=== PATIENT | female | born 1945 | race Caucasian/White ===

== ENCOUNTER 2017-05-10 09:03 | Emergency (ER) | payer MEDICARE, BC ==
[2017-05-10 09:21] VITALS: BP 111/53
--- NOTE | 2017-05-10 09:30 | UC ---
Respiratory Complaint HPI - HPI Summary HPI Summary: chest congestion / cough x 2 days no nasal congestion , no sore throat, no fever or chills, + chest tightness and shortness of breath no chest pain , no palpitation - History of Current Complaint Chief Complaint: UCRespiratory Stated Complaint: UPPER RESP Time Seen by Provider: 05/10/17 09:22 Hx Obtained From: Patient Onset/Duration: Gradual Onset, Lasting Days - 2, Still Present Severity Initially: Moderate Severity Currently: Moderate Character: Cough: Nonproductive Aggravating Factors: Exertion, Deep Breaths Alleviating Factors: Bronchodilator Associated Signs And Symptoms: Positive: Wheezing, URI, Nasal Congestion. Negative: Dyspnea, Fever, Chills, Pleuritic Chest Pain, Hemoptysis, Dizziness, Calf Pain, Calf Swelling, Hoarseness, Sinus Discomfort - Allergies/Home Medications Allergies/Adverse Reactions: Allergies Allergy/AdvReac Type Severity Reaction Status Date / Time Adhesive Tape Allergy Itching Verified 05/10/17 09:09 Sulfa Antibiotics AdvReac GI Upset Verified 05/10/17 09:09 Home Medications: Home Medications Spironolactone TAB* [Aldactone TAB*] 100 mg PO DAILY 05/10/17 [History Confirmed 05/10/17] Vitamin E 1,000 unit PO DAILY 05/10/17 [History Confirmed 05/10/17] PMH/Surg Hx/FS Hx/Imm Hx Previously Healthy: Yes GI/ History: Gastroesophageal Reflux - Surgical History Surgical History: Yes Surgery Procedure, Year, and Place: Hysterectomy-1980, Oopharectomy 1993, T&A, gastric bypass. L TKA. rotator cuff repair - Family History Known Family History: Positive: Hypertension - Social History Alcohol Use: Rare Substance Use Type: None Smoking Status (MU): Former Smoker Length of Time of Smoking/Using Tobacco: 1981 Review of Systems Constitutional: Negative Skin: Negative Eyes: Negative ENT: Negative Respiratory: Cough Cardiovascular: Negative Gastrointestinal: Negative All Other Systems Reviewed And Are Negative: Yes Physical Exam Triage Information Reviewed: Yes Appearance: Well-Appearing, No Pain Distress, Well-Nourished Vital Signs: Initial Vital Signs Temp 97.7 F 05/10/17 09:17 Pulse 61 05/10/17 09:17 Resp 20 05/10/17 09:17 BP 111/53 05/10/17 09:17 Pulse Ox 99 05/10/17 09:17 Eye Exam: Normal Eyes: Positive: Conjunctiva Clear ENT: Positive: Normal ENT inspection, Hearing grossly normal, Pharynx normal, TMs normal. Negative: Nasal congestion, Nasal drainage Neck exam: Normal Neck: Positive: Supple, Nontender, No Lymphadenopathy Respiratory: Positive: Chest non-tender, Lungs clear, Normal breath sounds Cardiovascular: Positive: RRR, No Murmur, Pulses Normal Skin Exam: Normal UC Diagnostic Evaluation - Laboratory O2 Sat by Pulse Oximetry: 99 Respiratory Course/Dx - Differential Dx/Diagnosis Provider Diagnoses: viral bronchitis Discharge - Discharge Plan Condition: Stable Disposition: HOME Prescriptions: Albuterol HFA INHALER* [Ventolin HFA Inhaler*] 1 puff INH Q4H PRN #1 mdi PRN Reason: Wheezing Benzonatate CAP* [Tessalon 100 MG CAP*] 100 mg PO TID PRN #21 cap PRN Reason: Cough Patient Education Materials: Acute Bronchitis (ED) Referrals: Joyce Alatorre MD [Primary Care Provider] - 7 Days
== END 2017-05-10 09:42 | disposition home or self-care (01) ==
LOC: UCCORT 09:03
DX: J20.8 Acute bronchitis due to other specified organisms (principal); Z87.891 Personal history of nicotine dependence; K21.9 Gastro-esophageal reflux disease without esophagitis
CPT/HCPCS: 99212; G0463

== ENCOUNTER 2017-09-01 09:20 | Emergency (ER) | payer MEDICARE, BC ==
[2017-09-01 09:28] VITALS: BP 110/52
--- NOTE | 2017-09-01 10:13 | UC ---
Skin Complaint HPI - HPI Summary HPI Summary: PET HOUSECAT DIAGNOSED WITH RINGWORM SEVERAL WEEKS AGO. HAS RED ITCHY RASH (3 SPOTS) DEVELOPING ON LEFT NECK AND CHIN. NO FEVER. NO SORE THORAT. NO WEAKNESS. NO CHEST PAIN. NO SOB. - History of Current Complaint Chief Complaint: UCSkin Time Seen by Provider: 09/01/17 09:51 Stated Complaint: SKIN COMPLAINT Hx Obtained From: Patient Hx Last Menstrual Period: n/a Onset/Duration: Gradual Onset, Lasting Days, Still Present Skin Exposure Onset/Duration: Days Ago Onset Severity: Mild Current Severity: Mild Location: Discrete - LEFT NECK CHIN Character: Pruritus, Redness Aggravating Factor(s): Clothing Alleviating Factor(s): Nothing, OTC Creams/Salves - HAS TRIED ANTIBACTERIAL OINTMENT WITH NO EFFECT Associated Signs & Symptoms: Positive: Rash. Negative: Nausea, Vomiting, Fever , Chills, Cough, Bruising, Tenderness, Red Streaks Related History: Possible Reaction to: Animal, Possible Reaction to: Environmental Exposure - Allergy/Home Medications Allergies/Adverse Reactions: Allergies Allergy/AdvReac Type Severity Reaction Status Date / Time Adhesive Tape Allergy Itching Verified 09/01/17 09:28 Sulfa Antibiotics AdvReac GI Upset Verified 09/01/17 09:28 Review of Systems Constitutional: Negative Skin: Rash Eyes: Negative ENT: Negative Respiratory: Negative Cardiovascular: Negative Gastrointestinal: Negative Genitourinary: Negative Motor: Negative Neurovascular: Negative Musculoskeletal: Negative Neurological: Negative Psychological: Negative Is Patient Immunocompromised?: No All Other Systems Reviewed And Are Negative: Yes PMH/Surg Hx/FS Hx/Imm Hx Previously Healthy: Yes - Surgical History Surgical History: Yes Surgery Procedure, Year, and Place: Hysterectomy-1980, Oopharectomy 1993, T&A, gastric bypass. L TKA. rotator cuff repair - Family History Known Family History: Positive: Hypertension - Social History Occupation: Retired Lives: With Family Alcohol Use: Rare Substance Use Type: None Smoking Status (MU): Former Smoker Length of Time of Smoking/Using Tobacco: 1981 - Immunization History Most Recent Influenza Vaccination: 07/2017 Physical Exam Triage Information Reviewed: Yes Appearance: Well-Appearing, No Pain Distress, Well-Nourished Vital Signs: Initial Vital Signs Temp 98.5 F 09/01/17 09:24 Pulse 68 09/01/17 09:24 Resp 16 09/01/17 09:24 BP 110/52 09/01/17 09:24 Pulse Ox 99 09/01/17 09:24 Vital Signs Reviewed: Yes Eye Exam: Normal ENT Exam: Normal ENT: Positive: Normal ENT inspection, Hearing grossly normal, TMs normal Dental Exam: Normal Neck exam: Normal Neck: Positive: Supple, Nontender, No Lymphadenopathy Respiratory Exam: Normal Respiratory: Positive: Chest non-tender, Lungs clear, Normal breath sounds, No respiratory distress, No accessory muscle use Cardiovascular Exam: Normal Cardiovascular: Positive: RRR, No Murmur, Pulses Normal, Brisk Capillary Refill Abdominal Exam: Normal Musculoskeletal Exam: Normal Musculoskeletal: Positive: Strength Intact, ROM Intact Neurological Exam: Normal Psychological Exam: Normal Skin: Positive: rashes Course/Dx - Differential Diagnoses - Skin Complaint Differential Diagnoses: Cellulitis, Drug Rash, Eczema, Impetigo, MRSA, Poison Tiffanie, Scabies, Tinea - Diagnoses Provider Diagnoses: TINEA CORPORIS Discharge - Discharge Plan Condition: Stable Disposition: HOME Prescriptions: Ketoconazole 2 % CREAM (NF) [Nizoral 2% CREAM (NF)] 1 applic TOPICAL TID #1 tube Patient Education Materials: Tinea Corporis (ED) Referrals: Aide Gutierrez MD [Primary Care Provider] -
== END 2017-09-01 10:08 | disposition home or self-care (01) ==
LOC: UCCORT 09:20
DX: B35.4 Tinea corporis (principal); Z88.2 Allergy status to sulfonamides; Z87.891 Personal history of nicotine dependence
CPT/HCPCS: 99212; G0463

== ENCOUNTER 2017-12-13 10:36 | Emergency (ER) | payer MEDICARE, BC ==
[2017-12-13 12:12] VITALS: BP 139/54
--- NOTE | 2017-12-13 13:06 | RAD ---
INDICATION: Low back pain COMPARISON: None TECHNIQUE: Routine 2 view imaging of the thoracolumbar spine was performed FINDINGS: Bones: There is osteopenia. There is an age-indeterminate superior endplate compression deformity of L1. There are mild biconcave changes of multiple lower thoracic vertebrae. There is spurring at the thoracolumbar junction. There is mild multilevel degenerative disc disease IMPRESSION: OSTEOPENIA WITH ENDPLATE CHANGES CONSISTENT WITH AGE-INDETERMINATE INSUFFICIENCY FRACTURES. CONSIDER MR IMAGING OR BONE SCAN IF INDICATED TO DETERMINE CHRONICITY.
--- NOTE | 2017-12-13 13:17 | UC ---
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 Hx Last Menstrual Period: n/a Onset/Duration: Sudden Onset, Lasting Days - 7, Still Present Timing: Constant Severity Initially: Moderate Severity Currently: Moderate Pain Intensity: 0 Back Pain: Is Discrete @ - left mid back Character: Aching Aggravating Factor(s): Movement, Lifting, Bending, Walking, Cough Alleviating Factor(s): Rest Associated Signs And Symptoms: Positive: Bowel Incontinence - Allergies/Home Medications Allergies/Adverse Reactions: Allergies Allergy/AdvReac Type Severity Reaction Status Date / Time Adhesive Tape Allergy Itching Verified 12/13/17 12:12 MS Sulfa Antibiotics AdvReac GI Upset Verified 12/13/17 12:12 [Sulfa Antibiotics] PMH/Surg Hx/FS Hx/Imm Hx Cardiovascular History: Hypertension - Surgical History Surgical History: Yes Surgery Procedure, Year, and Place: Hysterectomy-1980, Oopharectomy 1993, T&A, gastric bypass. L TKA. rotator cuff repair - Family History Known Family History: Positive: Hypertension - Social History Alcohol Use: Rare Substance Use Type: None Smoking Status (MU): Former Smoker Length of Time of Smoking/Using Tobacco: 1981 - Immunization History Most Recent Influenza Vaccination: 07/2017 Review of Systems Constitutional: Negative Skin: Negative Eyes: Negative ENT: Negative Respiratory: Negative Is Patient Immunocompromised?: No All Other Systems Reviewed And Are Negative: Yes Physical Exam Triage Information Reviewed: Yes Appearance: Well-Appearing, No Pain Distress, Well-Nourished Vital Signs: Initial Vital Signs Temp 98.0 F 12/13/17 12:08 Pulse 72 12/13/17 12:08 Resp 16 12/13/17 12:08 BP 139/54 12/13/17 12:08 Pulse Ox 99 12/13/17 12:08 Vital Signs Reviewed: Yes Eyes: Positive: Conjunctiva Clear ENT: Positive: Normal ENT inspection, Hearing grossly normal, Pharynx normal Neck: Positive: Supple, Nontender, No Lymphadenopathy Respiratory: Positive: Chest non-tender, Lungs clear, Normal breath sounds Cardiovascular Exam: Normal Cardiovascular: Positive: RRR, No Murmur Abdominal Exam: Normal Abdomen Description: Positive: Nontender, Soft. Negative: CVA Tenderness (R), CVA Tenderness (L), Distended, Guarding Bowel Sounds: Positive: Present Musculoskeletal: Positive: Other: - mid back : no swelling, no ecchymosis, no tenderness, pain with flexion and extension Skin Exam: Normal Diagnostics - Laboratory Diagnostic Studies Completed/Ordered: xray thoracolumbar: no acute disease Back Pain Course/Dx - Differential Dx/Diagnosis Provider Diagnoses: back strain Discharge - Discharge Plan Condition: Stable Disposition: HOME Patient Education Materials: Back Pain (ED) Forms: *Work Release Referrals: Aide Gutierrez MD [Primary Care Provider] -
== END 2017-12-13 13:16 | disposition home or self-care (01) ==
LOC: UCCORT 10:36
DX: S29.012A Strain of muscle and tendon of back wall of thorax, initial encounter (principal); Z87.891 Personal history of nicotine dependence; I10 Essential (primary) hypertension; X58.XXXA Exposure to other specified factors, initial encounter; Y92.9 Unspecified place or not applicable
CPT/HCPCS: 72080; 99211; G0463

== ENCOUNTER 2018-08-17 10:58 | Emergency (ER) | payer MEDICARE, BC ==
--- OUTSIDE RECORDS SUMMARY | 2018-08-17 11:13 | XMS REPORT | Continuity of Care Document ---
:1945 External Reference #:[id number] Author Name Gutierrez Lopez MD Address [address] [place] [address] Care Team Providers Name Role Phone Marcie Reno MD. Care Team Information Director Supply Unavailable Daniel Gonzalez MD Primary Care Physician Unavailable Payers Type Date Identification Numbers Payment Provider Subscriber Policy Number: [id number] Medicare Part B Brit Dubois PayID: [id number] [address] [place] [address] Policy Number: [id number] [facility] Brit Dubois PayID: [id number] [address] [address] [place] [address] Advance Directives Description No Information Available Problems Date Description Provider Status Onset: 03/03/2018 Presence of intraocular lens Gutierrez Lopez MD Active Onset: 03/03/2018 Conjunctival pigmentation Gutierrez Lopez MD Active Family History Description No Information Available Social History Type Date Description Comments Sex Unknown Tobacco Use Start: Unknown Patient has never smoked Allergies, Adverse Reactions, Alerts Date Description Reaction Status Severity Comments 03/03/2018 Sulfa Antibiotics Active Medications Medication Date Status Form Strength Qnty SIG Indications Ordering Provider Pramipexole Active Tablets 0.5mg Unknown 000 Enalapril Active Tablets 20mg Unknown Maleate 000 Diltiazem HCL Active Caps ER 120mg Unknown ER 000 12HR Dexilant Active Capsules DR 60mg Unknown 000 Furosemide Active Tablets 20mg Unknown 000 Gabapentin 00/00/0 Active Capsules 300mg Unknown 000 Magnesium Active Chewtabs 200mg Unknown 000 Famciclovir Active Tablets 500mg Unknown 000 Aspirin 81 Low Active Chewtabs 81mg by mouth Unknown Dose 000 every day Immunizations Description No Information Available Vital Signs Date Vital Result Comment 08/11/2018 10:50am Intraocular Pressure Right Eye 12 mmHg Tp 10:51 Am Intraocular Pressure Left Eye 10 mmHg 07/13/2018 7:57am Intraocular Pressure Right Eye 8 mmHg Tp 07:57 Am Intraocular Pressure Left Eye 10 mmHg Tp 07:57 Am 03/03/2018 9:17am Intraocular Pressure Right Eye 6 mmHg tp Intraocular Pressure Left Eye 5 mmHg tp Results Description No Information Available Procedures Description No Information Available Encounters Type Date Location Provider Dx Diagnosis Office Visit 07/13/2018 Main Office Gutierrez Tim 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
--- OUTSIDE RECORDS SUMMARY | 2018-08-17 11:13 | XMS REPORT ---
:1945 External Reference #:[id number] Author Organization [facility] Address [address] [place] [address] Phone [phone] Care Team Providers Name Role Phone [facility] Care Team Information [employer] Unavailable Problems Description No Information Family History Date Family Member(s) Problem(s) Comments Mother due to ID () - age 67 First Brother due to Lung Cancer () - age 57 Second Brother 73 Third Brother 75 First Sister due to Cancer () - early 30's bone Social History Type Date Description Comments Marital Status Significant 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 Cigarette Use Former Cigarette Smoker quit `1985 ETOH Use Occasional Recreational Drug Use Denies Drug Use Daily Caffeine Consumes on average 1 cup of coffee per day Exercise Type/Frequency active lifestyle Allergies, Adverse Reactions, Alerts Date Description Reaction Status Severity Comments 07/31/2018 Sulfa active Medications Medication Date Status Form Strength Qnty SIG Indications Ordering Provider Pramipexole / Active Tablets 0.5mg tid Unknown Dihydrochloride 0000 Enalapril Maleate / Active Tablets 20mg 1 by Unknown 0000 mouth every day Diltiazem HCL / Active Tablets 120mg 1 PO qd Unknown 0000 Dexilant / Active Capsules 60mg [address] mouth every day Furosemide / Active Tablets 20mg 1 by Unknown 0000 mouth every day Gabapentin / Active Capsules 300mg 1 by Unknown 0000 mouth three times a day Magnesium / Active Chewtabs 200mg Unknown 0000 Vitamin B-12 / Active Liquid 1000mcg/15 Unknown 0000 ML Vitamin E / Active Capsules 100Unit 1 by Unknown 0000 mouth every day Aspir-81 / Active Tablets DR 81mg 1 by Unknown 0000 mouth every day Famciclovir / Active Tablets 500mg as Unknown 0000 Needed Vital Signs Date Vital Result Comment 07/31/2018 BP Systolic 110 mmHg BP Diastolic 68 mmHg Heart Rate 60 /min Body Temperature 98.0 F Respiratory Rate 16 /min Height 65.5 inches 5'5.50" Weight 231.00 lb BMI (Body Mass Index) 37.9 kg/m2 Results Description No Information Procedures Description No Information Plan of Care 07/31/2018 - Supriya Coombs, Brendon-CZ00.8 Encounter for other general examinationComments:nl exam , no contraind to continued employmentAllComments:~B _~U_Medication Management~b_~u_ Patient Understands medications she's taking? Yes No Are there Barriers to Adherence? Yes No Has the patient been asked about herbal supplements and therapies, and OTC meds? Yes No ~B_~U_Care Plan~b_~u_1. Patient has been queried about patient's goals/ preferences and functional/lifestyle goals at relevant visits. If relevant, describe: na2. Treatment goals as explained to the patient: aboveroutine health maintenance and disease prevention 3. Are there barriers to meeting treatment goals? Yes No If Yes, please describe:4. Self-Management goals as described to the patient: Yes No continue regular physical activity and f/u with your pcp rotuinely
--- OUTSIDE RECORDS SUMMARY | 2018-08-17 11:14 | XMS REPORT ---
:1945 External Reference #:[id number] Author Organization [facility] Address [address] [place] [address] Phone [phone] Care Team Providers Name Role Phone Shakira Gonzalez NP Care Team Information Packaging Associate Unavailable Payers Type Date Identification Numbers Payment Provider Subscriber Medicare Primary Policy Number: [id number] Medicare Brit Dubois Group Name: Federal [address] PayID: [id number] [place] [address] [place] Part B Policy Number: [id number] [facility] Commercial Brit Dubois PayID: [id number] [address] [address] [place] [address] Problems Date Description Provider Status Onset: 01/24/2018 Benign essential hypertension Shakira Gonzalez NP Active Family History Date Family Member(s) Problem(s) Comments Father Hypertension Father due to Stroke () Mother Hypertension Mother due to AL () Mother Stroke First Son Depression First Daughter Diabetes, Adult First Daughter Depression First Daughter Hearing Impaired First Daughter Stroke First Brother Diabetes, Adult First Brother due to Kidney Disease () Second Brother Cancer, Lung Second Brother due to Cancer, Lung () Third Brother due to Accident () Fourth Brother Cancer, Prostate Fifth Brother Cancer, Prostate First Sister due to Cancer, Bone () Second Sister Diabetes, Adult Social History Type Date Description Comments Marital Status 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 Occupation [employer] 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 [employer] 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 Cigarette Use Former Cigarette Smoker Cigarette Use Former Cigarette Smoker 3 Packs Daily Cigarette Use Pack Years - 105 ETOH Use Occasionally consumes alcohol Smoking Patient is a former smoker Recreational Drug Use Denies Drug Use Enjoy Exercising Enjoys Exercising Sun Exposure Does not use sunscreen Seat Belt/Car Seat always uses seat belt Allergies, Adverse Reactions, Alerts Date Description Reaction Status Severity Comments 01/24/2018 Sulfa Antibiotics active Medications Medication Date Status Form Strength Qnty SIG Indications Ordering Provider Prednisone 07/21 Active Tablets 20mg 15tab 3 by mouth s every day x Shakira, 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 Nystatin 07/21 Active Powder [id number] 60gm apply 2 t/GM times a day Shakira, in affected TAILING MACHINE OPERATOR area until it heals, then once a day Shingrix 04/28 Active Suspension 50mcg 1unit as directed Rec s REY Rosenberg Estradiol 04/28 Active Cream 0.1mg/GM 42.5u apply pea nits sized Shakira, amount to TAILING MACHINE OPERATOR vaginal opening daily Magnesium 02/15 Active Tablets 400mg two in in the morning Shakira, and two in TAILING MACHINE OPERATOR the at night Ferrous Sulfate 02/02 Active Tablets 324(65Fe) 90tab 1 by mouth mg s every day REY Rosenberg Metronidazole 01/26 Active Gel 0.75% 70gm 1 applicator Shakira, full at TAILING MACHINE OPERATOR bedtime x 5 days Pramipexole 01/24 Active Tablets 0.5mg 90tab three times , Dihydrochloride s a day REY Rosenberg Enalapril 01/24 Active Tablets 20mg 90tab 1 every day , Maleate s REY Rosenberg Diltiazem CD 01/24 Active Caps ER 120mg 90cap 1 in the 24HR s morning REY Rosenberg Dexilant 01/[address] 60mg 30cap 1 at s bedtime REY Rosenberg Furosemide 01/24 Active Tablets 20mg 90tab 1 by mouth s every day REY Rosenberg Gabapentin 01/24 Active Capsules 300mg 270ca 1 three ps times a day REY Rosenberg Cyanocobalamin 01/24 Active Solution 1000mcg/M 3ml 1 L milliliters Shakira, intramuscul TAILING MACHINE OPERATOR ar every week x4 wks and then 1 milliliters intramuscul ar each month B-D Insulin 01/24 Active Misc 31G X 100un as directed Lisa Syringe 03/29" 1 its Shakira, Ultrafine ML TAILING MACHINE OPERATOR II/1ML/31G X 03/29" Famciclovir 01/24 Active Tablets 500mg 120ta as needed bs REY Rosenberg Aspirin 81 Low 01/24 Active Chewtabs 81mg 90uni 1 by mouth Temo Dose ts every day REY Rosenberg Vitamin E 01/24 Active Capsules 200Unit 120ca as directed ps REY Rosenberg T.E.D. 01/24 Active Misc 2Pair please Lisa Anti-Embolism measure for Shakira Stockings Thigh size TAILING MACHINE OPERATOR High Nitrofurantoin 01/26 Hx Capsules 100mg 14cap 1 by mouth Temo Macrocrystal s twice a day Cole Rosenberg NP 02/15 Magnesium 01/24 Hx Chewtabs 200mg 90uni as directed ts Cole Rosenberg NP 02/15 Immunizations CPT Code Status Date Vaccine Lot # [id number] Given 04/28/2018 Tdap (Adacel) Ages 7 And Above Only [id number] Given 04/28/2018 Prevnar 13 Pneumococal Conjugate Vaccine [id number] Vital Signs Date Vital Result Comment 07/21/2018 BP Systolic 120 mmHg BP Diastolic 70 mmHg 04/28/2018 Body Temperature 97.6 F Mmse=30/30 Weight 232.00 lb Heart Rate 76 /min BP Systolic 122 mmHg BP Diastolic 62 mmHg Height 66 inches 5'6" O2 % BldC Oximetry 97 % BMI (Body Mass Index) 37.4 kg/m2 Urine Dipstick - Blood NEGATIVE Urine Dipstick - Protein NEGATIVE Urine Dipstick - Glucose NEGATIVE Urine Dipstick - Leukocytes NEGATIVE 02/15/2018 Weight 245.00 lb BP Systolic 150 mmHg BP Diastolic 64 mmHg Height 66 inches 5'6" BMI (Body Mass Index) 39.5 kg/m2 Urine Dipstick - Blood NEGATIVE Urine Dipstick - Protein NEGATIVE Urine Dipstick - Glucose NEGATIVE Urine Dipstick - Leukocytes 2+ 01/24/2018 Body Temperature 98.2 F Weight 240.00 lb BP Systolic 120 mmHg BP Diastolic 70 mmHg Height 66 inches 5'6" BMI (Body Mass Index) 38.7 kg/m2 Urine Dipstick - Blood NEGATIVE Urine Dipstick - Protein NEGATIVE Urine Dipstick - Glucose NEGATIVE Urine Dipstick - Leukocytes 2+ Results Test Date Test Result H/L Range Note Iron Panel 05/02/2018 Iron, Total 28 g/dL Low 50-170 Transferrin 280.0 mg/dL 203.0-362.0 Tibc (calc) 392 g/dL 261-478 % Iron Saturation 7.1 % Low 13.0-45.0 CBC with Auto Diff-fcmg 05/02/2018 WBC 7.0 K/uL 4.1-11.0 RBC 4.60 M/uL 4.00-5.40 Hemoglobin 12.2 gm/dL 12.0-16.0 Hematocrit 38.3 % 36.0-47.0 MCV 83.2 fL 80.0-97.0 MCH 26.6 pg Low 27.0-32.0 MCHC 32.0 g/dL 32.0-36.0 RDW 17.0 % High 11.5-14.5 PLT Count 265 K/ul 140-400 MPV 8.3 FL 7.1-10.7 Neutrophil 59.4 % 35.0-75.0 Lymphocyte 28.3 % 16.0-52.0 Monocyte 8.1 % 2.0-10.0 Eosinophil 3.1 % 0.0-5.0 Basophil 1.1 % 0.0-4.0 Abs Neutrophils 4.1 K/uL 2.1-8.0 Abs Lymphocytes 2.0 K/uL 0.8-5.5 Abs Monocytes 0.6 K/uL 0.1-1.0 Abs Eosinophils 0.2 K/uL 0.0-0.5 Abs Basophils 0.1 K/uL 0.0-0.3 Laboratory test 04/28/2018 Hepatitis C Virus NON REACTIVE Non Reactive 1 finding Antibody S/[facility] Iron Panel 04/28/2018 Iron, Total 54 g/dL 50-170 Transferrin 297.0 mg/dL 203.0-362.0 Tibc (calc) 416 g/dL 261-478 % Iron Saturation 13.0 % 13.0-45.0 Comprehensive Met Panel-[facility] 04/28/2018 Sodium 144 mmol/L 135-146 2 Potassium 3.7 mmol/L 3.5-5.2 Chloride# 106 mmol/L 97-110 3 Carbon Dioxide 28 mmol/L 24-34 Glucose 82 mg/dL 70-105 BUN 11 mg/dL 6-26 Creatinine 0.8 mg/dL 0.5-1.4 Calcium 8.7 mg/dL 8.5-10.2 Total Protein 5.6 g/dL Low 6.0-8.0 Albumin 3.6 g/dL 3.6-4.9 Globulin 2.0 g/dL 2.0-3.5 A/G Ratio 1.8 Ratio 1.0-2.2 Total Bilirubin 0.4 mg/dL 0.1-1.3 Alkaline Phosphatase 99 U/L 24-140 Alt 10 U/L 3-42 Ast 17 U/L 8-42 Amy Egfr >60 >60 4 Non Amy Egfr >60 >60 5 Anion Gap 10 mmol/L 5-15 6 Lipid 04/28/2018 Cholesterol 137 mg/dL 50-199 Triglycerides 75 mg/dL 30-200 HDL 43 mg/dL 35-85 7 Chol/ HDL Ratio 3.2 ratio Low 3.7-5.6 VLDL 15 mg/dL 2-29 LDL (Calc) 79 mg/dL 20-99 8 Arthritis Panel-[facility] 02/15/2018 Rheumatoid Factor <10.0 IU/mL 0.0-10.0 Esr 11 mm/h (0-30) 9 CRP-High 2.42 mg/L 0.00-9.90 10 Uric Acid 4.6 mg/dL 2.6-7.6 Aletha Screen With Reflex-[facility] 02/15/2018 Aletha Screen NEGATIVE Negative dsDNA IgG 3.70 Negative 11 Lyme Igm/Igg AB 02/15/2018 Lyme Igm/Igg AB NEGATIVE (Neg) 12, 13 -RL @ Laboratory test 02/15/2018 Urine Culture Microbiology res 14 finding <SEE NOTE> Laboratory test 02/03/2018 Fit(Fecal Occult Negative Negative finding Blood) Order 01/30/2018 Urinalysis Done Negative [facility] test 01/30/2018 Hematocrit 35.9 % Low (36.0-47.0) 15 finding RBC 4.17 10*6/uL (4.00-5.40) 16 Retic Count -RL 01/30/2018 Retic % 1.0 % (0.6-2.1) Retic Index 0.9 % (0.5-1.9) Absolute Retic 0.04 10*6/uL (0.027-0.101) 17 Laboratory test finding 01/30/2018 Calcium 8.6 mg/dL 8.5-10.2 Iron Panel 01/30/2018 Iron, Total 28 g/dL Low 50-170 Transferrin 358.0 mg/dL 203.0-362.0 Tibc (calc) 501 g/dL High 261-478 % Iron Saturation 5.6 % Low 13.0-45.0 Laboratory test finding 01/30/2018 Vitamin B12 268 pg/mL 180-914 Folate 21.5 ng/ml 5.9-24.8 Ferritin 8.4 ng/ml Low 11.0-306.0 CBC With Auto Diff 01/30/2018 WBC 7.9 K/uL 4.1-11.0 RBC 4.09 M/uL 4.00-5.40 Hemoglobin 11.3 gm/dL Low 12.0-16.0 Hematocrit 34.6 % Low 36.0-47.0 MCV 84.6 fL 80.0-97.0 MCH 27.7 pg 27.0-32.0 MCHC 32.7 g/dL 32.0-36.0 RDW 13.4 % 11.5-14.5 PLT Count 302 K/ul 140-400 MPV 8.2 FL 7.1-10.7 Neutrophil 58.4 % 35.0-75.0 Lymphocyte 27.7 % 16.0-52.0 Monocyte 9.1 % 2.0-10.0 Eosinophil 4.0 % 0.0-5.0 Basophil 0.8 % 0.0-4.0 Abs Neutrophils 4.6 K/uL 2.1-8.0 Abs Lymphocytes 2.2 K/uL 0.8-5.5 Abs Monocytes 0.7 K/uL 0.1-1.0 Abs Eosinophils 0.3 K/uL 0.0-0.5 Abs Basophils 0.1 K/uL 0.0-0.3 Affirm 01/24/2018 Trichomonas Vaginalis Negative Negative Gardnerella Vaginalis Positive Negative Jennifer Species Negative Negative CBC With Auto Diff 01/24/2018 WBC 7.6 K/uL 4.1-11.0 18 RBC 4.16 M/uL 4.00-5.40 18 Hemoglobin 11.4 gm/dL Low 12.0-16.0 18 Hematocrit 35.7 % Low 36.0-47.0 18 MCV 85.8 fL 80.0-97.0 18 MCH 27.4 pg 27.0-32.0 18 MCHC 32.0 g/dL 32.0-36.0 18 RDW 13.4 % 11.5-14.5 18 PLT Count 298 K/ul 140-400 18 MPV 7.6 FL 7.1-10.7 18 Neutrophil 59.9 % 35.0-75.0 18 Lymphocyte 26.2 % 16.0-52.0 18 Monocyte 9.4 % 2.0-10.0 18 Eosinophil 3.6 % 0.0-5.0 18 Basophil 0.9 % 0.0-4.0 18 Abs Neutrophils 4.5 K/uL 2.1-8.0 18 Abs Lymphocytes 2.0 K/uL 0.8-5.5 18 Abs Monocytes 0.7 K/uL 0.1-1.0 18 Abs Eosinophils 0.3 K/uL 0.0-0.5 18 Abs Basophils 0.1 K/uL 0.0-0.3 18 Laboratory test finding 01/24/2018 TSH 0.56 uIU/mL 0.35-4.94 18 Hemoglobin A1c 01/24/2018 Hemoglobin A1c 5.4 % 4.1-5.9 18 Estimated Average Glucose Calc 108 mg/dL 71-140 18 Basic (BMP) 01/24/2018 Sodium 143 mmol/L 135-146 18, 19 Potassium 4.2 mmol/L 3.5-5.2 18 Chloride# 106 mmol/L 97-110 18, 20 Carbon Dioxide 30 mmol/L 24-34 18 Glucose 80 mg/dL 70-105 18 BUN 18 mg/dL 6-26 18 Creatinine 0.8 mg/dL 0.5-1.4 18 Calcium 8.3 mg/dL Low 8.5-10.2 18 Non Amy Egfr >60 >60 18, 21 Amy Egfr >60 >60 18, 22 Anion Gap 7 mmol/L 5-15 18, 23 Laboratory test finding 01/24/2018 Urine Culture Microbiology res <SEE NOTE > 24 1 S/CO Ratio >/=1.0 is REACTIVE. S/CO <5.0 is Low Reactive. S/CO >/= 5.0 is High Reactive. Effective Jul 08, 2017 all anti-HCV reactive samples are sent for quantitative PCR confirmation. 2 Updated reference range on new analyzer 3 Updated reference range on new analyzer 4 Concerning GFR Guidelines for Americans: Normal function or mild renal disease, if clinically at risk: >/=60 mL/min Moderately decreased: 30-59 Severely decreased: 15-29 Renal failure: <15 5 Concerning GFR Guidelines: Normal function or mild renal disease, if clinically at risk: >/=60 mL/min Moderately decreased: 30-59 Severely decreased: 15-29 Renal failure: <15 Glomerular Filtration Rate (GFR) is estimated based on the MDRD equation, which assumes a steady state for creatinine as recommended by the National Kidney Disease Education Program in conjunction with the National Institutes of Health and the National Kidney Foundation. Clinical conditions in which it may be necessary to measure GFR by using clearance methods include extremes of age and body size, severe malnutrition or obesity, diseases of skeletal muscle, paraplegia or quadriplegia, vegetarian diet, rapidly changing kidney function, and calculation of the dose of potentially toxic drugs that are excreted by the kidneys. 6 Updated Reference Range 7 Per NCEP ATP III Guidelines: Results lower than 40 mg/dL are suggestive of increased risk for coronary artery disease. Results > or=to 60 mg/dL are considered a negative risk factor. 8 Per NCEP ATP III Guidelines: Normal Population <130 Patients with medical conditions: CHD/DM Optimal: <100 Borderline high: 130-159 High: 160-189 Very high: >189 9 Unless otherwise specified, testing [place] [address] 10 Recommended Cardiac Risk Assessment: Low < 1.0 mg/L Average 1.0 - 3.0 mg/L High > 3.0 mg/L 11 Interpretation: <0.8 -9 IU/ml Negative 10-15 IU/ml Equivocal >15.0 IU/ml Positive 12 Specimen received unspun 13 A Negative serologic test for Lyme Disease indicates no serologic evidence of infection with B burgdorferi at the time this specimen was collected. A repeat specimen should be collected in 2 to 4 weeks if clinically indicated. Unless otherwise specified, testing [place] [address] 14 Microbiology results SOURCE Clean Catch Midstream FINAL RESULT 50,000 CFU/ML Mixed urogenital kaye consistent with contamination. Request fresh specimen if indicated. 15 Unless otherwise specified, testing performed by [facility] [address] [place] [address] 16 Unless otherwise specified, testing performed by [facility] [place] [address] [place] [address] 17 Unless otherwise specified, testing performed by [facility] [address] [place] [id number] 18 Specimen received unspun 2 SST 19 Updated reference range on new analyzer 20 Updated reference range on new analyzer 21 Concerning GFR Guidelines: Normal function or mild renal disease, if clinically at risk: >/=60 mL/min Moderately decreased: 30-59 Severely decreased: 15-29 Renal failure: <15 Glomerular Filtration Rate (GFR) is estimated based on the MDRD equation, which assumes a steady state for creatinine as recommended by the National Kidney Disease Education Program in conjunction with the National Institutes of Health and the National Kidney Foundation. Clinical conditions in which it may be necessary to measure GFR by using clearance methods include extremes of age and body size, severe malnutrition or obesity, diseases of skeletal muscle, paraplegia or quadriplegia, vegetarian diet, rapidly changing kidney function, and calculation of the dose of potentially toxic drugs that are excreted by the kidneys. 22 Concerning GFR Guidelines for Americans: Normal function or mild renal disease, if clinically at risk: >/=60 mL/min Moderately decreased: 30-59 Severely decreased: 15-29 Renal failure: <15 23 Updated Reference Range 24 Microbiology results SOURCE Clean Catch Midstream COLONY COUNT >100,000 CFU/ML PRELIMINARY RESULT Gram Negative Serafin. ID & Sensitivity to Follow. 01/25/2018 3:43 PM FINAL RESULT Escherichia coli (Isolate 1) Sensitivity Analysis Isolate 1 --------- AMIKACIN <=16 S AMOXICILLIN/CLAVULANATE >16/8 R AMPICILLIN >16 R AMPICILLIN/SULBACTAM >16/8 R CEFEPIME <=8 S CEFOTAXIME <=2 S CEFTRIAXONE <=1 S CEFUROXIME 16 I CIPROFLOXACIN <=1 S ERTAPENEM <=0.5 S GENTAMYCIN <=2 S IMIPENEM <=1 S LEVOFLOXACIN <=2 S NITROFURANTOIN <=32 S PIPERACILLIN/TAZOBACTAM <=16 S TETRACYCLINE <=4 S TOBRAMYCIN <=4 S TRIMETHOPRIM/SULFAMETHOXAZ <=2/38 S S=Sensitive;I=Indeterminate;R=Resistant Procedures Date CPT Code Description Status 01/24/2018 54286 Electrocardiogram Complete Completed 01/13/2018 Mammogram Completed 08/28/2009 Colonoscopy Completed Encounters Type Date Location Provider CPT E/M Dx Office Visit 04/28/2018 10:15a Shakira Leone NP [id number] Z00.00 D50.9 G25.81 I10 Z68.37 Z23 Z11.59 Office Visit 02/15/2018 3:15[place] [address] Z68.39 N30.01 G25.81 M79.606 R60.9 Office Visit 01/24/2018 2:15p [place] [address] R60.9 I10 N76.0 K42.9 R73.01 Plan of Care Future Appointment(s):08/18/2018 10:15 am - Shakira Gonzalez NP at [facility] - Shakira Gonzalez, REYM25.512 Pain in LEFT shoulderNew Xrays:Shoulder, Complete, Min. Of 2 V LTKnee, 1 0R 2 Views, LTM25.562 Pain in LEFT kneeS50.851A Superficial foreign body of RIGHT forearm, initial encounterAllNew Medication: Prednisone 20 mgNystatin [id number] Unit/GM
[2018-08-17 11:36] VITALS: BP 137/49
--- NOTE | 2018-08-17 14:11 | UC ---
Skin Complaint HPI - HPI Summary HPI Summary: Pt presents with c/o bilateral lower extremity skin redness and painful "itchy skin" . Pt has chronic lower extremity edema and reports that lower extremities are "less swollen than usual". Pt also has c/o of right buttock and hip pain that began after falling onto right knee ~ 3 days ago. Pt reports that pain radiates from right buttock to posterior upper thigh. - History of Current Complaint Chief Complaint: UCLowerExtremity Time Seen by Provider: 08/17/18 12:11 Stated Complaint: BILATERAL SKIN/RIGHT LEG COMPLAINT Hx Obtained From: Patient Hx Last Menstrual Period: n/a ?: No Onset/Duration: Gradual Onset, Lasting Days, Still Present Skin Exposure Onset/Duration: Days Ago Timing: Constant Onset Severity: Mild Current Severity: Moderate Pain Intensity: 8 Pain Scale Used: 0-10 Numeric Character: Pruritus, Redness, Painful Aggravating Factor(s): Touch Alleviating Factor(s): Nothing Associated Signs & Symptoms: Positive: Tenderness - Allergy/Home Medications Allergies/Adverse Reactions: Allergies Allergy/AdvReac Type Severity Reaction Status Date / Time Adhesive Tape Allergy Itching Verified 08/17/18 11:31 Sulfa (Sulfonamide AdvReac GI Upset Verified 08/17/18 11:31 Antibiotics) Home Medications: Home Medications Aspirin 81 mg CHEW TAB* 81 mg PO QAM 08/17/18 [History Confirmed 08/17/18] Cyanocobalamin INJ * [Vitamin B12 INJ *] 1,000 mcg IM Q14D 08/17/18 [History Confirmed 08/17/18] Dexlansoprazole (NF) [Dexilant (NF)] 60 mg PO QPM 08/17/18 [History Confirmed ] Diltiazem TAB* [Cardizem 60 MG Tab*] 120 mg PO QAM 08/17/18 [History Confirmed 08/17/18] Enalapril TAB* [Vasotec TAB*] 20 mg PO QAM 08/17/18 [History Confirmed 08/17/18] Famciclovir(NF) [Famvir(NF)] 500 mg PO SEE INSTRUCTIONS PRN 08/17/18 [History Confirmed 08/17/18] Furosemide TAB* [Lasix TAB*] 20 mg PO QAM 08/17/18 [History Confirmed 08/17/18] Gabapentin CAP(*) [Neurontin 300 CAP(*)] 300 mg PO TID 08/17/18 [History Confirmed 08/17/18] Lidocaine PATCH 5%* [Lidoderm 5% Patch*] 1 patch TRANSDERM DAILY PRN 08/17/18 [ History Confirmed 08/17/18] Magnesium Oxide TAB* [MagOx 400 TAB*] 200 mg PO QAM 08/17/18 [History Confirmed 08/17/18] Pramipexole TAB* [Mirapex TAB*] 0.5 mg PO TID 08/17/18 [History Confirmed ] Vitamin E CAP* 400 unit PO QAM 08/17/18 [History Confirmed 08/17/18] Review of Systems Constitutional: Negative Skin: Other - erythema, Eyes: Negative ENT: Negative Respiratory: Negative Cardiovascular: Negative Gastrointestinal: Negative Genitourinary: Negative Motor: Negative Neurovascular: Negative Musculoskeletal: Arthralgia, Myalgia Neurological: Negative Psychological: Negative Is Patient Immunocompromised?: No All Other Systems Reviewed And Are Negative: Yes PMH/Surg Hx/FS Hx/Imm Hx Previously Healthy: No Cardiovascular History: Cardiac Disease, Hypertension, Congestive Heart Failure - Surgical History Surgical History: Yes Surgery Procedure, Year, and Place: Hysterectomy-1980, Oopharectomy 1993, T&A, gastric bypass. L TKA. rotator cuff repair. LSP FUSION - Family History Known Family History: Positive: Hypertension - Social History Occupation: Employed Full-time Lives: With Family Alcohol Use: Weekly Substance Use Type: None Smoking Status (MU): Former Smoker Amount Used/How Often: ~2 PPD x 29 Years Length of Time of Smoking/Using Tobacco: 1985 Have You Smoked in the Last Year: Yes - Immunization History Most Recent Influenza Vaccination: 07/2017 Vaccination Up to Date: Yes Physical Exam Triage Information Reviewed: Yes Appearance: Obese Vital Signs: Initial Vital Signs Temp 98 F 08/17/18 11:27 Pulse 72 08/17/18 11:27 Resp 16 08/17/18 11:27 BP 137/49 08/17/18 11:27 Pulse Ox 97 08/17/18 11:27 Vital Signs Reviewed: Yes Eye Exam: Normal ENT Exam: Normal Dental Exam: Normal Neck exam: Normal Respiratory: Positive: No respiratory distress Cardiovascular Exam: Normal Musculoskeletal: Positive: Edema @ - bilateral lower extremities, non pitting, Other: - c/o pain right upper buttock that radiates to posterior right upper thigh Neurological Exam: Normal Psychological Exam: Normal Skin Exam: Other - bilateral lower extremities, erythematous, shiny, with 1-2 tiny forming clear fluid filled blisters intact Course/Dx - Differential Diagnoses - Skin Complaint Differential Diagnoses: Cellulitis - Diagnoses Provider Diagnoses: bilateral lower extremity cellulitis. right side sciatica Discharge - Sign-Out/Discharge Documenting (check all that apply): Patient Departure All imaging exams completed and their final reports reviewed: No Studies - Discharge Plan Condition: Stable Disposition: HOME Prescriptions: Cephalexin CAP* [Keflex 500 CAP*] 500 mg PO Q8H #21 cap Compress.stocking,Knee,Reg,Lrg [Relief Knee Close Toe] 1 each MC DAILY #1 each Patient Education Materials: Cellulitis (ED), Sciatica (ED), Lower Back Exercises (ED) Referrals: Prateek Gonzalez NP [Primary Care Provider] - If Needed - Billing Disposition and Condition Condition: STABLE Disposition: Home - Attestation Statements Provider Attestation: Per institutional requirements, I have reviewed the chart, however, I was not consulted specifically or made aware of this patient by the midlevel provider. I did not personally evaluate, interact with , or disposition this patient.
== END 2018-08-17 12:31 | disposition home or self-care (01) ==
LOC: UCCORT 10:58
DX: L03.116 Cellulitis of left lower limb (principal); L03.115 Cellulitis of right lower limb; M54.31 Sciatica, right side; Z88.1 Allergy status to other antibiotic agents; I10 Essential (primary) hypertension; I50.9 Heart failure, unspecified; Z87.891 Personal history of nicotine dependence
CPT/HCPCS: 99212; G0463

== ENCOUNTER 2019-02-07 18:09 | Emergency (ER) | payer MEDICARE, BC ==
--- OUTSIDE RECORDS SUMMARY | 2019-02-07 18:21 | XMS REPORT | Continuity of Care Document ---
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 Shakira Gonzalez NP Primary Care Physician Unavailable Payers Date Identification Numbers Payment Provider Subscriber Effective: 2010 Policy Number: [id number] Medicare Brit Dubois PayID: [id number] [address] [place] [address] Effective: 2010 Policy Number: [id number] [facility] Brit Dubois PayID: [id number] [address] [address] [place] [address] Advance Directives Description No Information Available Problems Description No Information Family History Date Family Member(s) Observation Comments General Cancer, Head And Neck General Diabetes General Hearing Loss Social History Type Date Description Comments Sex Unknown Marital Status Single 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 Cigarette Use Quit 26 Years Ago ETOH Use Rarely consumes alcohol Recreational Drug Use Never Used Drugs Allergies, Adverse Reactions, Alerts Date Description Reaction Status Severity Comments 07/07/2011 sulfa GI upset Active 07/07/2011 Tape rash Active Medications Medication Date Status Form Strength Qnty SIG Indications Ordering Provider Enalapril Maleate / Active Tablets 20mg in am Unknown 0000 Dexilant / Active Capsules DR 60mg 30cap one tab Unknown 0000 s daily 30 days Baby Aspirin / Active Chewtabs 81mg Unknown 0000 Ropinirole HCL / Active Tablets 2mg 5 x a day Unknown 0000 Furosemide / Active Tablets 40mg daily Unknown 0000 Famciclovir / Active Tablets 500mg Unknown 0000 Klor-Con 10 / Active Tablets ER 10Meq Unknown 0000 Diltiazem HCL ER / Active Caps ER 120mg Unknown 0000 12HR Gabapentin / Active Capsules 300mg 1 by Unknown 0000 mouth three times a day Pramipexole / Active Tablets 0.5mg daily Unknown Dihydrochloride 0000 Stool Softener / Active Capsules 250mg Unknown 0000 Iron / Active Tablets 325(65Fe) Unknown 0000 mg Magnesium / Active Capsules 500mg Unknown 0000 Vitamin E / Active Capsules 400Unit everyday Unknown 0000 Cartia XT / Hx Caps ER 180mg Unknown 0000 - 24HR 2018 B-12 / Hx Injection 1000mcg weekly Unknown - 2018 Lidoderm / Hx Patches 5% prn Unknown - 2018 Immunizations Description No Information Available Vital Signs Date Vital Result Comment 01/10/2019 9:24am Weight 252.00 lb Height 66 inches 5'6" BMI (Body Mass Index) 40.7 kg/m2 BP Systolic 125 mmHg BP Diastolic 79 mmHg Heart Rate 60 /min O2 % BldC Oximetry 96 % Body Temperature 96.4 F Sidman Score 24 Neck Circumference in inches 15 Pain Level 0 06/05/2015 3:22pm Weight 214.25 lb Height 66 inches 5'6" BMI (Body Mass Index) 34.6 kg/m2 BP Systolic 124 mmHg BP Diastolic 68 mmHg Heart Rate 76 /min O2 % BldC Oximetry 97 % Body Temperature 98.2 F Pain Level 0 07/07/2011 2:09pm Weight 210.00 lb Height 66 inches 5'6" BMI (Body Mass Index) 33.9 kg/m2 BP Systolic 90 mmHg BP Diastolic 64 mmHg Heart Rate 63 /min O2 % BldC Oximetry 96 % Body Temperature 97.7 F Results Test Date Facility Test Result H/L Range Note Fna With Cell 06/05/2015 [facility] Nature of Left Thyroid N Block/Histolog (607)- - Specimen y Text Diagnosis Benign follicula <SEE NOTE> N 1 Gross Pathology Received in etha <SEE NOTE> N 2 Micro Pathology The Papanicolaou <SEE NOTE> N 3 Final Diagnosis 241.9 N Clinical History 1- FNA, Thyroid, <SEE NOTE> N 4 Comments Specimen 1: The <SEE NOTE> N 5 1 Benign follicular nodule ([place] Category II: Benign). 2 Received in ethanol are 3 direct smears for PAP staining. Received in cytolyt are 12 cc of clear fluid for cell block preparation, designated 2A. tc 3 The Papanicolaou stained direct smears show small follicular cells with uniform nuclei in a background of thin colloid and blood. The histopathologic section of the aspirated material (cell block) is non-contributory. 4 1- FNA, Thyroid, Right Nodule 2- FNA, Thyroid, Left Nodule 5 Specimen 1: The specimen has insufficient follicular cell clusters or colloid for a definitive benign diagnosis based on the [place] System for Reporting Thyroid Cytopathology ([place] Category I: Non diagnostic). Recommend correlation with nodule size and complexity on ultrasound to assist in further management of the lesion. Procedures Date Code Description Status 06/05/2015 98191 Ultrasonic Guide Needle Biopsy Completed 06/05/2015 14794 Fna W/Image Completed 06/05/2015 85952 Fna W/Image Completed 07/07/2011 18449 Audiometry, Comprehensive Completed 07/07/2011 13091 Audiometry, Comprehensive Completed Encounters Type Date Location Provider Dx Diagnosis Office Visit 07/07/2011 Main Office Karli, 389.03 Hearing Loss 2:30p ELLIE Oneil Conductive Middle Ear 381.81 Eustachian Tube Dysfunction Plan of Treatment No Information Available
[2019-02-07 19:11] VITALS: BP 141/55
--- NOTE | 2019-02-07 20:37 | UC ---
Respiratory Complaint HPI - HPI Summary HPI Summary: pt presents with c/o of productive cough, chest congestion, chest tightness, pt was recently treated for pbeumonia, was feeling better now reports that chest congestion has returned. - History of Current Complaint Chief Complaint: UCGeneralIllness Stated Complaint: COUGH (HAD PNEUMONIA RECENTLY) Time Seen by Provider: 02/07/19 20:02 Hx Obtained From: Patient Hx Last Menstrual Period: n/a ?: No Onset/Duration: Gradual Onset, Lasting Days, Still Present Timing: Intermittent Episodes Severity Initially: Mild Severity Currently: Mild Pain Intensity: 0 Character: Cough: Productive Aggravating Factors: Deep Breaths, Recumbent Position Alleviating Factors: Nothing Associated Signs And Symptoms: Positive: URI, Nasal Congestion - Risk Factors Pulmonary Embolism Risk Factors: Negative Cardiac Risk Factors: Hypertension Pseudomonas Risk Factors: Negative Tuberculosis Risk Factors: Negative - Allergies/Home Medications Allergies/Adverse Reactions: Allergies Allergy/AdvReac Type Severity Reaction Status Date / Time Adhesive Tape Allergy Itching Verified 02/07/19 19:04 Sulfa (Sulfonamide AdvReac GI Upset Verified 02/07/19 19:04 Antibiotics) Home Medications: Home Medications Omeprazole 20 mg PO DAILY 02/07/19 [History Confirmed 02/07/19] PMH/Surg Hx/FS Hx/Imm Hx Previously Healthy: Yes Endocrine History: Dyslipidemia Cardiovascular History: Cardiac Disease, Hypertension - Surgical History Surgical History: Yes Surgery Procedure, Year, and Place: Hysterectomy-1980, Oopharectomy 1993, T&A, gastric bypass. L TKA. rotator cuff repair. LSP FUSION. bilateral cataracts. T&A - Family History Known Family History: Positive: Hypertension - Social History Occupation: Retired Lives: With Family Alcohol Use: Occasionally Substance Use Type: None Smoking Status (MU): Former Smoker Amount Used/How Often: ~2 PPD x 29 Years Length of Time of Smoking/Using Tobacco: 1985 Have You Smoked in the Last Year: Yes - Immunization History Most Recent Influenza Vaccination: 07/2017 Vaccination Up to Date: Yes Review of Systems All Other Systems Reviewed And Are Negative: Yes Constitutional: Positive: Negative Skin: Positive: Negative Eyes: Positive: Negative ENT: Positive: Sinus Congestion Respiratory: Positive: Shortness Of Breath, Cough Cardiovascular: Positive: Negative Gastrointestinal: Positive: Negative Genitourinary: Positive: Negative Motor: Positive: Negative Neurovascular: Positive: Negative Musculoskeletal: Positive: Negative Neurological: Positive: Negative Psychological: Positive: Negative Is Patient Immunocompromised?: No Physical Exam Triage Information Reviewed: Yes Appearance: Ill-Appearing, Obese Vital Signs: Initial Vital Signs Temp 98.4 F 02/07/19 19:06 Pulse 75 02/07/19 19:06 Resp 19 02/07/19 19:06 BP 141/55 02/07/19 19:06 Pulse Ox 97 02/07/19 19:06 Vital Signs Reviewed: Yes Eye Exam: Normal ENT: Positive: Nasal congestion Dental Exam: Normal Neck exam: Normal Respiratory: Positive: Decreased breath sounds Cardiovascular Exam: Normal Musculoskeletal Exam: Normal Neurological Exam: Normal Psychological Exam: Normal Skin Exam: Normal Respiratory Course/Dx - Differential Dx/Diagnosis Differential Diagnosis/HQI/PQRI: Bronchitis Provider Diagnosis: Pneumonia Discharge - Sign-Out/Discharge Documenting (check all that apply): Patient Departure All imaging exams completed and their final reports reviewed: No - Discharge Plan Condition: Stable Disposition: HOME Prescriptions: Albuterol HFA INHALER* [Ventolin HFA Inhaler*] 1 - 2 puff INH Q6H PRN #1 mdi PRN Reason: Sob/Wheezing Amoxicillin/Clavulanate TAB* [Augmentin TAB 500 mg*] 500 mg PO Q12H #20 tab predniSONE TAB* [Deltasone 10 MG TAB*] 30 mg PO DAILY #12 tab Patient Education Materials: Pneumonia (ED) Referrals: Prateek Gonzalez NP [Primary Care Provider] - As Soon As Possible - Billing Disposition and Condition Condition: STABLE Disposition: Home - Attestation Statements Provider Attestation: Per institutional requirements, I have reviewed the chart, however, I was not consulted specifically or made aware of this patient by the midlevel provider. I did not personally evaluate, interact with , or disposition this patient.
[2019-02-07] MEDS ORDERED: Amoxicillin/Clavulanate TAB* 875 MG PO ONE (20:43)
[2019-02-07] MEDS ORDERED: Amoxicillin/Clavulanate TAB* 250 MG PO ONE (20:43)
--- NOTE | 2019-02-08 15:27 | ED ---
Progress - Progress Note Progress Note: xray radiology read shows NAD. Course/Dx - Diagnoses Provider Diagnoses: Pneumonia Discharge - Sign-Out/Discharge Documenting (check all that apply): Patient Departure All imaging exams completed and their final reports reviewed: Yes - Discharge Plan Condition: Stable Disposition: HOME Prescriptions: Albuterol HFA INHALER* [Ventolin HFA Inhaler*] 1 - 2 puff INH Q6H PRN #1 mdi PRN Reason: Sob/Wheezing Amoxicillin/Clavulanate TAB* [Augmentin TAB 500 mg*] 500 mg PO Q12H #20 tab predniSONE TAB* [Deltasone 10 MG TAB*] 30 mg PO DAILY #12 tab Patient Education Materials: Pneumonia (ED) Referrals: Prateek Gonzalez NP [Primary Care Provider] - As Soon As Possible - Billing Disposition and Condition Condition: STABLE Disposition: Home
== END 2019-02-07 20:49 | disposition home or self-care (01) ==
LOC: UCCORT 18:09
DX: J18.9 Pneumonia, unspecified organism (principal); I10 Essential (primary) hypertension; Z87.891 Personal history of nicotine dependence; Z88.2 Allergy status to sulfonamides; Z91.09 Other allergy status, other than to drugs and biological substances
CPT/HCPCS: 71046; 99212; A9270-GY; G0463

== ENCOUNTER 2019-04-30 19:29 | Emergency (ER) | payer MEDICARE, BC ==
--- OUTSIDE RECORDS SUMMARY | 2019-04-30 20:18 | XMS REPORT | Continuity of Care Document ---
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 Tobacco Use Start: Unknown End: Former Cigarette Smoker quit `1985 Unknown ETOH Use Occasional Recreational Drug Use Denies Drug Use Tobacco Use Start: Unknown End: Patient is a former smoker Unknown Smoking Status Reviewed: 04/25/19 Patient is a former smoker Exercise Type/Frequency active lifestyle Allergies, Adverse Reactions, Alerts Active Allergies Reaction Severity Comments Date Sulfa 07/31/2018 Medications Active Medications SIG Qnty Indications Ordering Provider Date Pramipexole tid Unknown Dihydrochloride 0.5mg Tablets Enalapril Maleate 1 by mouth Unknown 20mg Tablets every day Diltiazem HCL 1 PO qd Unknown 120mg Tablets Furosemide 1 by mouth Unknown 20mg Tablets every day Gabapentin 1 by mouth Unknown 300mg Capsules three times a day Magnesium Unknown 200mg Chewtabs Vitamin E 1 by mouth Unknown 100Unit Capsules every day Aspir-81 1 by mouth Unknown 81mg Tablets DR every day Famciclovir as Needed Unknown 500mg Tablets Klor-Con 10 1 by mouth Unknown 10Meq Tablets ER every day Stool Softner 250MG once a day Unknown Iron 65MG two times a day Unknown History Medications Dexilant 1 by mouth every day Unknown - 04/25/2019 60mg Capsules Vitamin B-12 Unknown - 04/25/2019 1000mcg/15ML Liquid Vital Signs Date Vital Result Comment 04/25/2019 9:06am BP Systolic 130 mmHg BP Diastolic 70 mmHg Heart Rate 74 /min Body Temperature 97.2 F Respiratory Rate 20 /min Height 67 inches 5'7" Weight 252.00 lb BMI (Body Mass Index) 39.5 kg/m2 07/31/2018 10:26am BP Systolic 110 mmHg BP Diastolic 68 mmHg Heart Rate 60 /min Body Temperature 98.0 F Respiratory Rate 16 /min Height 65.5 inches 5'5.50" Weight 231.00 lb BMI (Body Mass Index) 37.9 kg/m2 Plan of Treatment 04/25/2019 - Janette Curiel, NPZ00.8 Encounter for other general examinationAllComments:1. Patient has been queried about patient's goals/ preferences and functional/lifestyle goals at relevant visits. If relevant, describe: Has been discussed, noted above2. Treatment goals as explainedto the patient: see above3. Are there barriers to meeting treatment goals? Yes If Yes, please describe: Barriers include possible insurance limits, disease process, and difficulty with lifestyle changes4. Self-Management goals as described to the patient: Yes, see above As always, we strongly encourage a healthy diet and making physical activity a part of your every day life. If you have questions about how or where to start, please contact the office.
[2019-04-30 20:34] VITALS: BP 131/57
--- NOTE | 2019-04-30 23:03 | UC ---
Upper Extremity HPI - HPI Summary HPI Summary: 73 year old female with h/o gastric bypass, presents with increased pain in right thumb x weeks. Patient states thumb felt like it got "stuck"with cramping , she pulled it out and since has been having increased pain, particularly with gripping. 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 no improvement over time, unable to take nsaids due to gastric bypass. - History of Current Complaint Chief Complaint: UCUpperExtremity Stated Complaint: RIGHT HAND COMPLAINT Time Seen by Provider: 04/30/19 21:01 Hx Obtained From: Patient Hx Last Menstrual Period: n/a ?: No Onset/Duration: Sudden Onset, Lasting Weeks Severity Initially: Moderate Severity Currently: Moderate Pain Intensity: 3 Pain Scale Used: 0-10 Numeric Location Of Pain: Is Discrete @ - right thumb Character: Dull, Throbbing, Spasmodic Aggravating Factor(s): Movement Alleviating Factor(s): Rest Associated Signs And Symptoms: Positive: Negative - Allergies/Home Medications Allergies/Adverse Reactions: Allergies Allergy/AdvReac Type Severity Reaction Status Date / Time Adhesive Tape Allergy Itching Verified 04/30/19 20:27 Sulfa (Sulfonamide AdvReac GI Upset Verified 04/30/19 20:27 Antibiotics) Home Medications: Home Medications Aspirin EC TAB* [Ecotrin EC Low Dose 81 MG*] 81 mg PO BEDTIME 04/30/19 [History Confirmed 04/30/19] Docusate Sodium [Stool Softener] 1 cap QPM 04/30/19 [History Confirmed 04/30/19] Enalapril TAB* [Vasotec TAB*] 20 mg PO QAM 04/30/19 [History Confirmed 04/30/19] Famciclovir 500 mg PO DAILY PRN 04/30/19 [History Confirmed 04/30/19] Furosemide TAB* [Lasix TAB*] 20 mg PO BID 04/30/19 [History Confirmed 04/30/19] Gabapentin CAP(*) [Neurontin 300 CAP(*)] 300 - 400 mg TID 04/30/19 [History Confirmed 04/30/19] Iron 65 mg DAILY 04/30/19 [History Confirmed 04/30/19] Magnesium Oxide [Magnesium] 500 mg PO DAILY 04/30/19 [History Confirmed 04/30/19 ] Potassium Chlor TAB* [Klor Con ER TAB 10 MEQ*] 1 tab QAM 04/30/19 [History Confirmed 04/30/19] Pramipexole TAB* [Mirapex TAB*] 0.5 mg PO TID 04/30/19 [History Confirmed ] dilTIAZem HCl [Diltiazem HCl] 120 mg PO QAM 04/30/19 [History Confirmed 04/30/19 ] PMH/Surg Hx/FS Hx/Imm Hx Previously Healthy: Yes - Surgical History Surgical History: Yes Surgery Procedure, Year, and Place: Hysterectomy-1980, Oopharectomy 1993, T&A, gastric bypass. L TKA. rotator cuff repair. LSP FUSION. bilateral cataracts. T&A - Family History Known Family History: Positive: Hypertension - Social History Alcohol Use: Occasionally Substance Use Type: None Smoking Status (MU): Former Smoker Amount Used/How Often: ~2 PPD x 29 Years Length of Time of Smoking/Using Tobacco: 1985 Have You Smoked in the Last Year: Yes - Immunization History Most Recent Influenza Vaccination: 07/2017 Most Recent Tetanus Shot: UCUPPER Vaccination Up to Date: Yes Review of Systems All Other Systems Reviewed And Are Negative: Yes Motor: Positive: Decreased ROM - due to pain Musculoskeletal: Positive: Arthralgia, Decreased ROM, Myalgia Is Patient Immunocompromised?: No Physical Exam Triage Information Reviewed: Yes Appearance: Well-Appearing, No Pain Distress, Well-Nourished Vital Signs: Initial Vital Signs Temp 98.3 F 04/30/19 20:27 Pulse 73 04/30/19 20:27 Resp 16 04/30/19 20:27 BP 131/57 04/30/19 20:27 Pulse Ox 98 04/30/19 20:27 Vital Signs Reviewed: Yes Eyes: Positive: Conjunctiva Clear Musculoskeletal: Positive: ROM Intact - tenderness with full flexion/ extension of thumb, No Edema, Strength Limited @ - tenderness with full flexion, extension. Neurological: Positive: Alert Psychological Exam: Normal Skin Exam: Normal - no rashes, edema noted Upper Extremity Course/Dx - Course Course Of Treatment: radiograph- + for OA, no fracture, avulsion, thumb spice placed, medrol dose pack, follow up with ortho - Differential Dx/Diagnosis Differential Diagnosis/HQI/PQRI: Laceration, Strain, Sprain Provider Diagnosis: DJD (degenerative joint disease) Discharge - Sign-Out/Discharge Documenting (check all that apply): Patient Departure All imaging exams completed and their final reports reviewed: Yes - Discharge Plan Condition: Good Disposition: HOME Prescriptions: methylPREDNISolone [Medrol] 4 mg PO DAILY #1 brandon Patient Education Materials: Prednisone (By mouth), Arthritis (ED) Forms: *Work Release Referrals: Ezra Hameed MD [Medical Doctor] - Prateek Gonzalez NP [Primary Care Provider] - Additional Instructions: - Rest, ice, elevate hand - Medrol dose as prescribed for pain, swelling - Follow up with orthopedic for further treatment - Thumb spica- wear while active to help rest thumb, may take off for sleeping, showering - Tylenol as needed for pain - Billing Disposition and Condition Condition: GOOD Disposition: Home
== END 2019-04-30 21:40 | disposition home or self-care (01) ==
LOC: UCCORT 19:29
DX: M18.11 Unilateral primary osteoarthritis of first carpometacarpal joint, right hand (principal); Z87.891 Personal history of nicotine dependence
CPT/HCPCS: 99213; G0463

== ENCOUNTER 2019-07-15 19:10 | Emergency (ER) | payer MEDICARE, BC ==
--- OUTSIDE RECORDS SUMMARY | 2019-07-15 19:15 | XMS REPORT | Continuity of Care Document ---
:1945 External Reference #:[id number] Author Name Shakira Gonzalez NP Address [address] [place] [address] Problems Active Problems Provider Date Benign essential hypertension Shakira Gonzalez NP Onset: 01/24/2018 Social History Type Date Description Comments Sex Unknown Tobacco Use Start: Unknown End: Former Cigarette Smoker Unknown Tobacco Use Start: Unknown End: Former Cigarette Smoker 3 Unknown Packs Daily Cigarette Use Pack Years - 105 Smoking Status Reviewed: 04/28/18 Former Cigarette Smoker 3 Packs Daily ETOH Use Occasionally consumes alcohol Tobacco Use Start: Unknown End: Patient is a former smoker Unknown Recreational Drug Use Denies Drug Use Enjoy Exercising Enjoys Exercising Sun Exposure Does not use sunscreen Seat Belt/Car Seat always uses seat belt Allergies, Adverse Reactions, Alerts Active Allergies Reaction Severity Comments Date Sulfa Antibiotics 01/24/2018 Medications Active Medications SIG Qnty Indications Ordering Date Provider Diltiazem CD 1 by mouth every 90caps Lisa, 06/27/2019 120mg Caps day REY Rosenberg ER 24HR Diltiazem HCL ER 1 by mouth every 90caps Lisa, 06/27/2019 Beads day REY Rosenberg 120mg Caps ER 24HR Meclizine HCL 1 by mouth three 30tabs H81.49 [facility], 06/06/2019 25mg times a day as MD Daniel Tablets needed Gabapentin 1 by mouth three 90caps [facility], 04/30/2019 400mg times a day REY Rosenberg Capsules Klor-Con M10 take 1 tablet by 90Tablet [facility], 02/28/2019 10Meq mouth every day REY Rosenberg Tablets ER Famciclovir for active 120tabs [facility], 01/29/2019 500mg breackout, take 1 Shakira, [employer] Tablets tab by mouth 3 times per day, for 7 days, then to prevent future breakouts, take 1 tab by mouth once daily Albuterol Sulfate 1 vial via 90ml J15.9 [facility], 12/25/2018 nebulizer every 4-6 ShakiraREY murcia (2.5mg/3ML) 0.083% hours as needed Nebulizer wheezing Pantoprazole Sodium 1 at bedtime 90tabs [facility]12/05/[address]Y [address] 40mg Tablets DR Alprazolam 1 at bedtime 30tabs G47.00 [facility], 11/22/2018 0.25mg REY Rosenberg Tablets Ferrous Sulfate 12.5 milliliters 500ml [facility], 09/04/2018 twice a day on an REY Rosenberg 300(60Fe) mg/5ML empty stomach with Syrup orange juice Potassium Chloride 1 by mouth every 30tabs [facility], 08/18/2018 Jana ER day REY Rosenberg 10Meq Tablets ER Magnesium two in in the [facility], 02/15/2018 400mg Tablets morning and two in REY Rosenberg the at night Pramipexole three times a day 90tabs [facility], 01/24/2018 Dihydrochloride REY Rosenberg 0.5mg Tablets Enalapril Maleate 1 every day 90tabs [facility]01/24/2018 20mg REY Rosenberg Tablets Furosemide 2 by mouth every 180tabs [facility]01/24/2018 20mg Tablets day REY Rosenberg Cyanocobalamin 1 milliliters 3ml [facility]01/24/2018 intramuscular every REY Rosenberg 1000mcg/ML Solution week x4 wks and then 1 milliliters intramuscular each month B-D Insulin Syringe as directed 100units [facility]01/24/2018 Ultrafine II/1ML/31G REY Rosenberg X 5/16" 31G X 5/16" 1 ML Misc Aspirin 81 Low Dose 1 by mouth every 90units [facility]01/24/2018 day REY Rosenberg 81mg Chewtabs Vitamin E as directed 120caps [facility]01/24/2018 200Unit REY Rosenberg Capsules T.E.D. Anti-Embolism please measure for 2Pair [facility]01/24/2018 Stockings Thigh High size REY Rosenberg Misc History Medications Ampicillin one by mouth 21caps Shakira Gonzalez, 06/18/2019 - 500mg Capsules three times a [employer] 07/11/2019 day for seven days Azithromycin 2 by mouth 6tabs J20.9 Shakira Gonzalez, 02/08/2019 - 250mg every day x 1 [employer] 04/30/2019 Tablets day then 1 by mouth every day x 4 days Immunizations CPT Code Status Date Vaccine Lot # [id number] Given 08/18/2018 Fluzone Highdose Age 65 And Over Preservative & [id number] Antibiotic Free [id number] Given 04/28/2018 Tdap (Adacel) Ages 7 And Above Only [id number] Given 04/28/2018 Prevnar 13 Pneumococal Conjugate Vaccine [id number] Vital Signs Date Vital Result Comment 07/11/2019 4:59pm Body Temperature 97.5 F Weight 261.00 lb Heart Rate 60 /min BP Systolic 120 mmHg BP Diastolic 70 mmHg Respiratory Rate 16 /min Height 66 inches 5'6" O2 % BldC Oximetry 96 % BMI (Body Mass Index) 42.1 kg/m2 Urine Dipstick - Blood pos Urine Dipstick - Protein pos Urine Dipstick - Glucose neg Urine Dipstick - Leukocytes pos 06/06/2019 10:45am Body Temperature 97.5 F Weight 259.00 lb Heart Rate 71 /min BP Systolic Lying Down 132 mmHg p 67 BP Diastolic Lying Down 62 mmHg p 67 BP Systolic Sitting 134 mmHg p 70 BP Diastolic Sitting 70 mmHg p 70 BP Systolic Standing 140 mmHg p 70 BP Diastolic Standing 80 mmHg p 70 Respiratory Rate 17 /min Height 66 inches 5'6" O2 % BldC Oximetry 97 % BMI (Body Mass Index) 41.8 kg/m2 Urine Dipstick - Blood trace Urine Dipstick - Protein neg Urine Dipstick - Glucose neg Urine Dipstick - Leukocytes pos Results Test Date Facility Test Result H/L Range Note Laboratory test 07/11/2019 [facility] Fluid <pending> finding Specimen -RL Laboratory test 07/11/2019 [facility] Culture <pending> finding Laboratory test 06/06/2019 [facility] Vitamin B12 348 pg/mL 180-914 finding Basic (BMP) 06/06/2019 [facility] Sodium 143 mmol/L 135-146 1 Potassium 3.9 mmol/L 3.5-5.2 Chloride# 106 mmol/L 97-110 2 Carbon Dioxide 29 mmol/L 24-34 Glucose 106 mg/dL High 70-105 BUN 14 mg/dL 6-26 Creatinine 0.8 mg/dL 0.5-1.4 Calcium 8.7 mg/dL 8.5-10.5 3 Female Egfr 72 >60 4 Male Egfr 88 >60 5 Anion Gap 8 mmol/L 5-15 6 Iron Panel 06/06/2019 [facility] Iron, Total 52 g/dL 50-170 Transferrin 282.0 mg/dL 203.0-362.0 Tibc (calc) 395 g/dL 261-478 % Iron Saturation 13.2 % 13.0-45.0 Laboratory test 06/06/2019 [facility] Culture Microbiology res <SEE 7 finding NOTE> Urine Culture Repeat Microbiology res <SEE NOTE> Abnormal 8 Laboratory test finding 06/06/2019 [facility] Fluid Specimen SEE NOTE 9 Rout Urine W/ Micro -RL 06/06/2019 [facility] Color YELLOW Appearance CLOUDY Spec Grav Urine 1.015 (1.003-1.030) PH Urine 6.0 (5.0-7.5) Leuk Esterase NEGATIVE (Neg) Nitrite Urine NEGATIVE (Neg) Protein Urine NEGATIVE (Neg) Glucose Urine NEGATIVE (Neg) Ketone Urine NEGATIVE (Neg) Urobilinogen 0.2 mg/dL (0-1.0) Bilirubin Urine NEGATIVE (Neg) Blood/HGB Urine NEGATIVE (Neg) Urine WBC NONE SEEN [HPF] (0-5) Urine RBC NONE SEEN [HPF] (0-2) Bacteria 4+ [HPF] 10 1 Updated reference range on new analyzer 2 Updated reference range on new analyzer 3 Updated reference range 03-14-2019 4 Concerning GFR Guidelines for Americans: Normal function or mild renal disease, if clinically at risk: >/= 60 mL/min Moderately decreased: 30-59 Severely decreased: 15-29 Renal failure: <15 There is reduced accuracy above 60ml/min/1.73 m squared, but the numeric value may be clinically useful in the near 60 range 5 Concerning GFR Guidelines: Normal function or mild renal disease, if clinically at risk: >/= 60 mL/min Moderately decreased: 30-59 Severely decreased: 15-29 Renal failure: <15 There is reduced accuracy above 60ml/min/1.73 m squared, but the numeric value may be clinically useful in the near 60 range Glomerular Filtration Rate (GFR) is estimated based on the CKD-EPI equation, which assumes a steady state for [...] by the kidneys. 6 Updated Reference Range -2017 7 Microbiology results SOURCE Clean Catch Midstream COLONY COUNT 50,000 CFU/ML PRELIMINARY RESULT Gram Negative Serafin. ID & Sensitivity to Follow. 06/07/2019 3:09 PM 8 Microbiology results FINAL RESULT Escherichia coli (Isolate 1) Sensitivity Analysis Isolate 1 --------- AMIKACIN <=16 S AMOXICILLIN/CLAVULANATE <=8/4 S AMPICILLIN <=8 S AMPICILLIN/SULBACTAM <=8/4 S AZTREONAM <=4 S CEFAZOLIN <=2 S CEFEPIME <=8 S CEFOTAXIME <=2 S CEFTAZIDIME <=1 S CEFTRIAXONE <=1 S CEFUROXIME 8 S CIPROFLOXACIN <=1 S ERTAPENEM <=0.5 S GENTAMYCIN <=2 S IMIPENEM <=1 S LEVOFLOXACIN <=2 S PIPERACILLIN/TAZOBACTAM <=16 S TETRACYCLINE 8 I TOBRAMYCIN <=4 S TRIMETHOPRIM/SULFAMETHOXAZ <=2/38 S S=Sensitive;I=Indeterminate;R=Resistant [address] [facility]. [address] [place] [address] MISCELLANEOUS CYTOLOGY REPORT Source of Specimen(s): A: LBP Urine, Voided Clinical Diagnosis and History: R82.998 Gross Description LBP Urine, Voided: 4.5ml yellow fluid Final Diagnosis Specimen Adequacy Satisfactory Final Diagnosis NEGATIVE FOR HIGH-GRADE UROTHELIAL CARCINOMA. Squamous cells and urothelial cells. Processed and screen As applicable, positive and negative controls for all immunohistochemical and/or special stains were reviewed and considered appropriate. Reported: 06/11/2019 05:59 Electronically Signed Out By Suzy Rasmussen [facility] Log Clerk: Rachele [facility]ARIO[facility] ICD Code: R82.998 CPT Code: A: 76612I Unless otherwise specified, testing performed by [facility] [address] [place] [id number] Unless otherwise specified, testing performed by [facility] [address] [place] [id number] Procedures Date Code Description Status 06/11/2019 [id number] Mammogram Completed 01/13/2018 [id number] Mammogram Completed 08/28/2009 [id number] Colonoscopy Completed Medical Devices Description No Information Available Encounters Type Date Location Provider Dx Diagnosis Office Visit 06/06/2019 Daniel Leone MD E66.01 Morbid (severe) 10:45a obesity due to excess calories Z68.41 Body mass index (BMI) 40.0-44.9, adult R82.998 Other abnormal findings in urine H81.49 Vertigo of central origin, unspecified ear Z13.228 Encounter for screening for other metabolic disorders I10 Essential (primary) hypertension R53.83 Other fatigue Office Visit 04/30/2019 4:00p Shakira Leone NP E66.01 Morbid ( severe) obesity due to excess calories G25.81 Restless legs syndrome Z68.41 Body mass index (BMI) 40.0-44.9, adult Office Visit 02/08/2019 4:00p Shakira Leone NP E66.01 Morbid ( severe) obesity due to excess calories J20.9 Acute bronchitis, unspecified Z68.41 Body mass index (BMI) 40.0-44.9, adult Assessments Date Code Description Provider 07/11/2019 E66.01 Morbid (severe) obesity due to excess Shakira Gonzalez NP calories 07/11/2019 R19.4 Change in bowel habit Shakira Gonzalez NP 07/11/2019 H65.113 Acute and subacute allergic otitis media Shakira Gonzalez NP (mucoid) (sanguinous) (serous), bilateral 07/11/2019 Z68.41 Body mass index (BMI) 40.0-44.9, adult Shakira Gonzalez NP 06/06/2019 E66.01 Morbid (severe) obesity due to excess Daniel Gonzalez MD calories 06/06/2019 Z68.41 Body mass index (BMI) 40.0-44.9, adult Daniel Gonzalez MD 06/06/2019 R82.998 Other abnormal findings in urine Daniel Gonzalez MD 06/06/2019 H81.49 Vertigo of central origin, unspecified ear Daniel Gonzalez MD 06/06/2019 Z13.228 Encounter for screening for other metabolic Daniel Gonzalez MD disorders 06/06/2019 I10 Essential (primary) hypertension Daniel Gonzalez MD 06/06/2019 R53.83 Other fatigue Daniel Gonzalez MD 06/06/2019 Z13.228 Encounter for screening for other metabolic [facility] disorders 06/06/2019 I10 Essential (primary) hypertension [facility] 06/06/2019 R53.83 Other fatigue [facility] 06/06/2019 R82.998 Other abnormal findings in urine [facility] 04/30/2019 E66.01 Morbid (severe) obesity due to excess Shakira Gonzalez NP calories 04/30/2019 G25.81 Restless legs syndrome Shakira Gonzalez NP 04/30/2019 Z68.41 Body mass index (BMI) 40.0-44.9, adult Shakira Gonazlez NP 02/08/2019 E66.01 Morbid (severe) obesity due to excess Shakira Gonzalez NP calories 02/08/2019 J20.9 Acute bronchitis, unspecified Shakira Gonzalez NP 02/08/2019 Z68.41 Body mass index (BMI) 40.0-44.9, adult Shakira Gonzalez NP Plan of Treatment 07/11/2019 - Shakira Gonzalez NPE66.01 Morbid (severe) obesity due to excess [id number] Change in bowel habitNew Labs:O[facility] and Parasite Basic-RL, Ordered: 07/11/19Stool Panel, Ordered: 07/11/19H65.113 Acute and subacute allergic otitis media (mucoid) (sanguinous) (serous), bilateralComments:plain mucinex 1200mg twice a dayZ68.41 Body mass index (BMI) 40.0-44.9, adult Functional Status Description No Information Available Mental Status Description No Information Available Referrals Description No Information Available
[2019-07-15 19:21] VITALS: BP 145/64
[2019-07-15] MEDS ORDERED: HYDROcodone/ACETAMIN 5-325 MG* 1 TAB PO ONE (20:09)
--- NOTE | 2019-07-15 20:28 | ED ---
Upper Extremity Pain - HPI Summary HPI Summary: Patient is a 73 yr old female who presents today with left shoulder pain x 2 days. No injury , just astarted when she was trying to get out of the chair. NO neck pain , numbness or tingling. No chest pain or shortness of breath . Denies any prior shoulder problems. Pain worse with movements of left shoulder. Taking tylenol 1 gm without any relief. last does today at 4 pm. - History of Current Complaint Chief Complaint: UCUpperExtremity Stated Complaint: LEFT ARM PAIN Time Seen by Provider: 07/15/19 19:18 Hx Obtained From: Patient Hx Last Menstrual Period: n/a - Allergies/Home Medications Allergies/Adverse Reactions: Allergies Allergy/AdvReac Type Severity Reaction Status Date / Time Adhesive Tape Allergy Itching Verified 07/15/19 19:17 Sulfa (Sulfonamide AdvReac GI Upset Verified 07/15/19 19:17 Antibiotics) PMH/Surg Hx/FS Hx/Imm Hx Endocrine/Hematology History: Denies: Hx Diabetes Cardiovascular History: Reports: Hx Hypertension Denies: Hx Pacemaker/ICD Respiratory History: Reports: Other Respiratory Problems/Disorders - HX OF PNEUMONIA IN DEC 2018. 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 L TKA. rotator cuff repair. LSP FUSION. bilateral cataracts. T&A Infectious Disease History: No Infectious Disease History: Denies: History Other Infectious Disease, Traveled Outside the [place] in Last 30 Days - Family History Known Family History: Positive: Hypertension - Social History Alcohol Use: None Substance Use Type: Reports: None Smoking Status (MU): Former Smoker Amount Used/How Often: ~2 PPD x 29 Years Length of Time of Smoking/Using Tobacco: 1985 Have You Smoked in the Last Year: Yes Physical Exam Vital Signs On Initial Exam: Initial Vitals Temp Pulse Resp BP Pulse Ox 98.1 F 66 16 145/64 98 07/15/19 19:15 07/15/19 19:15 07/15/19 19:15 07/15/19 19:15 07/15/19 19:15 Diagnostics - Vital Signs Vital Signs Temp Pulse Resp BP Pulse Ox 07/15/19 19:15 98.1 F 66 16 145/64 98 - Laboratory Lab Statement: Any lab studies that have been ordered have been reviewed, and results considered in the medical decision making process. Discharge ED - Discharge Plan Condition: Stable Disposition: HOME Patient Education Materials: Osteoarthritis (ED) Referrals: Prateek Gonzalez NP [Primary Care Provider] - Additional Instructions: Start PT 1 dose of norco is being dispensed to be taken when you reach home. Pain control as needed . I have prescribed vicodin to pharmacy . [facility], please follow up with PMD within a month Return if your symptoms get worse - Billing Disposition and Condition Condition: STABLE Disposition: Home
--- NOTE | 2019-07-15 20:35 | UC ---
Shoulder Pain HPI - HPI Summary HPI Summary: Patient is a 73 yr old female who presents today with left shoulder pain x 2 days. No injury , just astarted when she was trying to get out of the chair. NO neck pain , numbness or tingling. No chest pain or shortness of breath . Denies any prior shoulder problems. Pain worse with movements of left shoulder. Taking tylenol 1 gm without any relief. last does today at 4 pm. - History of Current Complaint Chief Complaint: UCUpperExtremity Stated Complaint: LEFT ARM PAIN Time Seen by Provider: 07/15/19 19:18 Hx Obtained From: Patient Hx Last Menstrual Period: n/a Pain Intensity: 8 Pain Scale Used: 0-10 Numeric - Allergies/Home Medications Allergies/Adverse Reactions: Allergies Allergy/AdvReac Type Severity Reaction Status Date / Time Adhesive Tape Allergy Itching Verified 07/15/19 19:17 Sulfa (Sulfonamide AdvReac GI Upset Verified 07/15/19 19:17 Antibiotics) PMH/Surg Hx/FS Hx/Imm Hx - Additional Past Medical History Additional PMH: PMH: HTN, HLD PSH: Hysterectomy-1980, Oopharectomy 1993, T&A, gastric bypass L TKA rotator cuff repair LSP FUSION bilateral cataracts Social history: former smoker. Family history: Non contributory Previously Healthy: Yes - Surgical History Surgical History: Yes Surgery Procedure, Year, and Place: Hysterectomy-1980, Oopharectomy 1993, T&A, gastric bypass. L TKA. rotator cuff repair. LSP FUSION. bilateral cataracts. T&A - Family History Known Family History: Positive: Hypertension, Non-Contributory - Social History Alcohol Use: None Substance Use Type: None Smoking Status (MU): Former Smoker Amount Used/How Often: ~2 PPD x 29 Years Length of Time of Smoking/Using Tobacco: 1985 Have You Smoked in the Last Year: Yes - Immunization History Most Recent Influenza Vaccination: 07/2017 Most Recent Tetanus Shot: UCUPPER Vaccination Up to Date: Yes Review of Systems All Other Systems Reviewed And Are Negative: Yes Constitutional: Positive: Negative Skin: Positive: Negative Eyes: Positive: Negative ENT: Positive: Negative Respiratory: Positive: Negative Cardiovascular: Positive: Negative Gastrointestinal: Positive: Negative Genitourinary: Positive: Negative Motor: Positive: Negative Neurovascular: Positive: Negative Musculoskeletal: Positive: Negative Neurological: Positive: Negative Psychological: Positive: Negative Is Patient Immunocompromised?: No Physical Exam - Summary Physical Exam Summary: Vital Signs Reviewed: Yes A+Ox3, no distress Eyes: Conjunctiva Clear ENT: Hearing grossly normal neck: supple Respiratory: Positive: No respiratory distress, No accessory muscle use Cardiovascular: skin color reflect adequate perfusion Neurological: Positive: Alert, ambulatory without difficulty Psychological: Positive: Normal Response To Family Skin: Positive: no rash, no ecchymosis Left shoulder: Normal to inspection . tender to palpate at the greater tuberosity, small lump noted posteriorly , tender but no erythema or drainage. Limited and painful ROM in all planes , elsi abduction and forward flexion. Strength 5/5 . Empty can test positive for pain but not weakness Triage Information Reviewed: Yes Vital Signs: Initial Vital Signs Temp 98.1 F 07/15/19 19:15 Pulse 66 07/15/19 19:15 Resp 16 07/15/19 19:15 BP 145/64 07/15/19 19:15 Pulse Ox 98 07/15/19 19:15 Vital Signs Reviewed: Yes Diagnostics - Radiology No standard instances Radiology Interpretation Completed By: ED Physician - Left shoulder : prelim: no fracture, mild to moderate osteoarthritis Shoulder Course/Dx - Course Course Of Treatment: During the visit today, we obtained Xrays of left shoulder- arthritis , no fracture. Your x-rays were done after 6 PM and no official radiology read is available at this time .X-rays will be read tomorrow morning by radiologist and if anything different, somebody will call you with the findings and further plan. . We discussed the findings and further plan. she was given 1 dose of norco here to take when she reach home. Vicodin was sent to pharmacy , ELLIE Bowie e prescribed it as website not working for my account, I STOP done. She sees orthopedics at [facility] and plan to follow up there. PT script provided Patient expressed understanding - Differential Dx/Diagnosis Provider Diagnosis: Primary osteoarthritis, left shoulder, Rotator cuff strain Discharge ED - Sign-Out/Discharge Documenting (check all that apply): Patient Departure All imaging exams completed and their final reports reviewed: No - Discharge Plan Condition: Stable Disposition: HOME Prescriptions: Hydrocodone/Acetaminophen [[place] 5-325 Tablet] 1 each PO Q12HR #10 tablet MDD 2 Patient Education Materials: Osteoarthritis (ED) Referrals: Prateek Gonzalez NP [Primary Care Provider] - Additional Instructions: Start PT 1 dose of norco is being dispensed to be taken when you reach home. Pain control as needed . I have prescribed vicodin to pharmacy . [facility], please follow up with PMD within a month Return if your symptoms get worse - Billing Disposition and Condition Condition: STABLE Disposition: Home
--- NOTE | 2019-07-16 09:33 | UC ---
- Progress Note Progress Note: Final radiologist reading of left shoulder x-ray from July 15, 2019 comes back as no fracture and positive for before meals joint arthritis. The provider interpretation same date is the same therefore there is no discrepancy. Course/Dx - Diagnoses Provider Diagnoses: Primary osteoarthritis, left shoulder, Rotator cuff strain Discharge ED - Sign-Out/Discharge Documenting (check all that apply): Patient Departure All imaging exams completed and their final reports reviewed: Yes - Discharge Plan Condition: Stable Disposition: HOME Prescriptions: Hydrocodone/Acetaminophen [[place] 5-325 Tablet] 1 each PO Q12HR #10 tablet MDD 2 Patient Education Materials: Osteoarthritis (ED) Referrals: Prateek Gonzalez NP [Primary Care Provider] - Additional Instructions: Start PT 1 dose of norco is being dispensed to be taken when you reach home. Pain control as needed . I have prescribed vicodin to pharmacy . [facility], please follow up with PMD within a month Return if your symptoms get worse - Billing Disposition and Condition Condition: STABLE Disposition: Home
== END 2019-07-15 20:25 | disposition home or self-care (01) ==
LOC: UCCORT 19:10
DX: M19.012 Primary osteoarthritis, left shoulder (principal); S43.422A Sprain of left rotator cuff capsule, initial encounter; X50.0XXA Overexertion from strenuous movement or load, initial encounter; Y93.89 Activity, other specified; Y92.9 Unspecified place or not applicable; I10 Essential (primary) hypertension; Z87.891 Personal history of nicotine dependence
CPT/HCPCS: 99212; G0463

== ENCOUNTER 2021-03-02 05:52 | Observation (INO) ==
[2021-03-02] MEDS ORDERED: Buffered Lidocaine 1% SYRIN 1 ml INTRADERM ONE (06:00)
[2021-03-02] MEDS ORDERED: Lactated Ringers 1000 ml BAG 1,000 ML IV SCH ×3 (06:00→14:20)
[2021-03-02] MEDS ORDERED: ceFAZolin 2 GM PREMIX 2 GM/50 ML BAG ONE (06:18)
[2021-03-02] MEDS ORDERED: Dexamethasone IV 4 MG/ML VIAL 1 ml VIAL ONE (06:42)
[2021-03-02] MEDS ORDERED: Midazolam 2 mg/2 ml VIAL 1 mg/ml 2 ml VIAL (2 mg) ONE (06:42)
[2021-03-02] MEDS ORDERED: Bupivacaine 0.5% SDV PF 30ML VIAL ONE (06:42)
[2021-03-02] MEDS ORDERED: fentaNYL 100 mcg/2 ml 50 MCG/ML VIAL ONE (07:20)
[2021-03-02] MEDS ORDERED: Vancomycin 1,000 MG VIAL ONE ×2 (07:39→08:02)
[2021-03-02] MEDS ORDERED: Bupivacaine 0.25% SDV 30 ML ONE (07:39)
[2021-03-02] MEDS ORDERED: HYDROmorphone 1 MG/1 ML SYRINGE ONE ×4 (08:07→11:53)
[2021-03-02] MEDS ORDERED: Phenylephrine 40 mcg/mL 10mL (400mcg) SYRINGE ONE (08:31)
[2021-03-02] MEDS ORDERED: Lidocaine 2% PF 5 ML VIAL ONE (08:32)
[2021-03-02] MEDS ORDERED: Propofol 10 MG/ML 20 ML BTL ONE (08:32)
[2021-03-02] MEDS ORDERED: Rocuronium 50 mg VIAL 10 mg/ml 5 ml VIAL (50 mg) ONE (08:33)
[2021-03-02] MEDS ORDERED: DiMENhydriNATE IV 50 mg/ml 1 ml VIAL IV PUSH PRN (09:01)
[2021-03-02] MEDS ORDERED: HYDROmorphone 1 MG/1 ML SYRINGE IV PRN (09:01)
[2021-03-02] MEDS ORDERED: Naloxone 0.4 mg VIAL 0.4 mg/ml 1 ml VIAL IV PRN (09:01)
[2021-03-02] MEDS ORDERED: Levalbuterol 1.25MG/0.5ML NEB.SOL INH PRN (09:01)
[2021-03-02] MEDS ORDERED: Acetaminophen IV 1 GM/100ML 100 ML ONE (09:16)
[2021-03-02] MEDS ORDERED: Ondansetron 4 mg VIAL 2 MG/ML 2 ml VIAL ONE (09:22)
[2021-03-02] MEDS ORDERED: Ondansetron 4 mg VIAL 2 MG/ML 2 ml VIAL IV PRN (10:55)
[2021-03-02] MEDS ORDERED: diPHENhydraMINE IV 50 MG/ML 1 ml VIAL (BENADRYL) IV PRN (10:55)
[2021-03-02] MEDS ORDERED: Lactulose 30 ml UDC PO PRN (10:55)
[2021-03-02] MEDS ORDERED: Morphine 2 MG/ML SYRINGE IV PRN (10:55)
[2021-03-02] MEDS ORDERED: diPHENhydraMINE 25 mg TAB PO PRN (10:55)
[2021-03-02] MEDS ORDERED: Magnesium Hydroxide LIQ 30 ML UDC PO PRN (10:55)
[2021-03-02] MEDS ORDERED: Ondansetron ODT 4 mg TAB 4 MG TAB PO PRN (10:55)
[2021-03-02] MEDS ORDERED: Phenylephrine IV 10 MG/ML 1 ml VIAL ONE (11:25)
[2021-03-02] MEDS ORDERED: FAMCICLOVIR 250 MG PO PRN (11:31)
[2021-03-02] MEDS ORDERED: Albuterol HFA INHALER 8 gm MDI INH PRN (11:31)
[2021-03-02] MEDS: ceFAZolin 1 GM ADVAN 1 GM in NS 0.9% 50 ML 50 ML IVPB SCH (16:15)
[2021-03-02] MEDS: Potassium Chlor 10 meq TAB PO SCH (20:53)
[2021-03-02] MEDS: Magnesium Hydroxide LIQ 30 ML UDC PO SCH (20:54)
[2021-03-03] MEDS: ceFAZolin 1 GM ADVAN 1 GM in NS 0.9% 50 ML 50 ML IVPB SCH ×2 (00:01→07:49)
[2021-03-03 06:22] LABS: Hematocrit 33 % (35-47); Hemoglobin 10.8 g/dL (12.0-16.0); Platelet Count 219 10^3/uL (150-450)
[2021-03-03 06:45] LABS: BUN/Creatinine Ratio 21.8 (8-20); Calcium 8.1 mg/dL (8.6-10.3); EGFR African American 64.7 (>60); EGFR Non-African American 53.4 (>60); Potassium 4.6 mmol/L (3.5-5.0)
[2021-03-03] MEDS: Potassium Chlor 10 meq TAB PO SCH (08:41)
[2021-03-03] MEDS: Magnesium Hydroxide LIQ 30 ML UDC PO SCH (08:41)
[2021-03-03] MEDS ORDERED: Vitamin THERAPEUTIC TAB PO SCH (09:00)
[2021-03-03 11:30] VITALS: BP 119/50
== END 2021-03-03 13:10 | disposition home or self-care (01) ==
LOC: AA 05:52 → INTOOBSV 05:52 → SSU 12:44
PROVIDERS: ADMIT Orthopaedic Surgery; ATTEND Orthopaedic Surgery

== ENCOUNTER 2024-03-07 09:21 | Observation (INO) ==
[~2024-03-07 09:21] MED LIST: NS 0.45% 1000 ml BAG 1,000 ML IV SCH; Naloxone 0.4 mg VIAL 0.4 mg/ml 1 ml VIAL IV PRN
[2024-03-07] MEDS ORDERED: Midazolam 2 mg/2 ml VIAL 1 mg/ml 2 ml VIAL (2 mg) ONE ×2 (09:46→11:21)
[2024-03-07] MEDS ORDERED: Rocuronium 50 mg VIAL 10 mg/ml 5 ml VIAL (50 mg) ONE ×2 (09:46→13:30)
[2024-03-07] MEDS ORDERED: Dexamethasone IV 4 MG/ML VIAL 1 ml VIAL ONE (09:47)
[2024-03-07] MEDS ORDERED: Sevoflurane BOTTLE ONE (09:47)
[2024-03-07] MEDS ORDERED: Lidocaine 2% PF 5 ML VIAL ONE (09:47)
[2024-03-07] MEDS ORDERED: fentaNYL 100 mcg/2 ml 50 MCG/ML VIAL ONE ×3 (09:47→16:17)
[2024-03-07] MEDS ORDERED: Ondansetron 4 mg VIAL 2 MG/ML 2 ml VIAL ONE ×2 (09:47→16:18)
[2024-03-07] MEDS ORDERED: Propofol 10 MG/ML 20 ML BTL ONE (09:47)
[2024-03-07] MEDS ORDERED: Phenylephrine IV 10 MG/ML 1 ml VIAL ONE (09:47)
[2024-03-07] MEDS ORDERED: Tranexamic Acid 1 GM/100ML BAG 2,000 MG/200 ML BAG IV ONE (09:53)
[2024-03-07] MEDS ORDERED: ceFAZolin 2 GM PREMIX 2 GM/50 ML BAG ONE (09:53)
[2024-03-07 10:07] LABS: Rapid COVID-19 Molecular Undetected (Undetected)
[2024-03-07] MEDS ORDERED: ROPIVACAINE 5 MG/ML 30 ML BTL (0.5%) ONE (10:50)
[2024-03-07] MEDS ORDERED: Vancomycin 1,000 MG VIAL ONE (12:48)
[2024-03-07] MEDS ORDERED: HYDROmorphone 0.5 MG/0.5 ML SYRINGE ONE (14:03)
[2024-03-07] MEDS ORDERED: Morphine 2 MG/ML SYRINGE IV PRN (16:15)
[2024-03-07] MEDS ORDERED: Ondansetron ODT 4 mg TAB 4 MG TAB PO PRN (16:15)
[2024-03-07] MEDS ORDERED: Ondansetron 4 mg VIAL 2 MG/ML 2 ml VIAL IV PRN (16:15)
[2024-03-07] MEDS ORDERED: Lactulose 30 ml UDC PO PRN (16:15)
[2024-03-07] MEDS ORDERED: Magnesium Hydroxide LIQ 30 ML UDC PO PRN (16:15)
[2024-03-07] MEDS ORDERED: Metoclopramide 5 MG/ML VIAL (10 mg) ONE (16:18)
[2024-03-07] MEDS ORDERED: Acetaminophen IV 1 GM/100ML 1,000 MG/100 ML BAG IV ONE (16:18)
[2024-03-07] MEDS: Ondansetron 4 mg VIAL 2 MG/ML 2 ml VIAL IV PRN (16:18)
[2024-03-07] MEDS: Metoclopramide 5 MG/ML VIAL (10 mg) IV PRN (16:19)
[2024-03-07] MEDS: fentaNYL 100 mcg/2 ml 50 MCG/ML VIAL IV PRN (16:21)
[2024-03-07] MEDS: Acetaminophen IV 1 GM/100ML 1,000 MG/100 ML BAG IV ONE (16:22)
[2024-03-07] MEDS: Lactated Ringers 1000 ml BAG 1,000 ML IV SCH ×2 (18:03→18:21)
[2024-03-07] MEDS: Buffered Lidocaine 1% SYRIN 1 ml INTRADERM ONE (18:03)
[2024-03-07] MEDS: Albuterol HFA INHALER 8 gm MDI INH SCH (19:51)
[2024-03-07] MEDS: Magnesium Hydroxide LIQ 30 ML UDC PO SCH (21:08)
[2024-03-07] MEDS: Potassium Chlor 20 meq TAB.ER PO SCH (21:10)
[2024-03-07] MEDS: ceFAZolin 1 GM ADVAN 1 GM in NS 0.9% 50 ML 50 ML IVPB SCH (21:16)
[2024-03-08 06:40] LABS: Hematocrit 28.3 % (35-45); Hemoglobin 9.1 g/dL (11.5-14.3); Mean Platelet Volume 8.2 fL (7.5-11.2); Platelet Count 201 10^3/uL (150-450)
[2024-03-08 06:51] LABS: Calcium 7.4 mg/dL (8.6-10.3); Creatinine, Serum 1.37 mg/dL (0.51-0.95); eGFR CKD-EPI 39.5 (>60)
[2024-03-08 09:23] VITALS: BP 110/49
[2024-03-08] MEDS: Vitamin THERAPEUTIC TAB PO SCH (09:37)
[2024-03-09] MEDS ORDERED: Calcium/Vitamin D TAB 250/125 TAB PO SCH (09:00)
== END 2024-03-08 13:45 | disposition home or self-care (01) ==
LOC: AA 09:21 → INTOOBSV 16:15
PROVIDERS: ADMIT Orthopaedic Surgery; ATTEND Orthopaedic Surgery